=== PATIENT | male | born 1940 | race Caucasian/White ===

== ENCOUNTER → 2017-07-04 | Outpatient (CLI) | payer OTHER ==
[~2017-07-04] MED LIST: ALBUAER19 INH; CYAN500T PO; FINA5TAB PO; FOLI1TAB8 PO; FURO20TA PO; METO-551 PO; OPTIRAY 320 IV PRN; OXGN; SPRIN/30 INH; SULF-183 PO; TAMS0.4C59 PO; THIA100T11 PO
--- NOTE | 2017-07-04 10:20 | DIAGNOSTIC IMAGING REPORT ---
(CHEST) THORAX WITH CT DOSE: 479.41 mGy.cm HISTORY: Lung mass LUNG MASS SEEN XRAY TECHNIQUE: Multiaxial CT images of the chest were performed following the intravenous administration of contrast. A dose lowering technique was utilized adhering to the principles of ALARA. COMPARISON: None. No recent examinations are available for comparison. FINDINGS: The mediastinal and hilar regions show no significant adenopathy. There is mild atherosclerotic change thoracic aorta as well as the pulmonary vasculature. There is no evidence for aneurysm or dissection. Evaluation of lung parenchyma shows no evidence for focal infiltrate. There is a 4 mm nodule peripheral aspect right upper lobe transaxial image 38. There is a 3 mm nodular density lingula image 42. There is calcific granuloma right lower lobe posteriorly image 43. Limited evaluation the upper abdomen shows several renal peripelvic cysts with several nonobstructing renal calcifications. IMPRESSION: 1. Several very small low suspicion nodular densities as discussed. 2. A Six-month follow-up is suggested. 3. Examination of the chest is otherwise negative. The above report was generated using voice recognition software. It may contain grammatical, syntax or spelling errors. Electronically signed by: Jensen Pittman M.D. 07/04/2017 10:18 AM Dictated Date/Time: 07/04/2017 10:13 AM
== END | disposition home or self-care (01) ==
LOC: C.CTS 09:49
PROVIDERS: ATTEND Family Medicine
DX: R91.8 Other nonspecific abnormal finding of lung field (principal); I70.0 Atherosclerosis of aorta

== ENCOUNTER 2017-09-12 13:02 | Inpatient (IN) | payer OTHER ==
[~2017-09-12] VITALS: Ht 177.8 cm; Wt 92.5 kg
[~2017-09-12 13:02] MED LIST changes: -OPTIRAY 320 IV PRN
--- NOTE | 2017-09-12 14:25 | EMERGENCY ROOM VISIT NOTE ---
History First contact with patient: 14:14 Chief Complaint: FALL Stated Complaint: FALL History of Present Illness The patient is a 77 year old male who presents to the Emergency Room with complaints of recent fall while unloading box of beer from car and transporting it to house when he felt lightheaded, and new he was going to fall. No associated facial, palpitations, heart racing, dyspnea. Patient has history of COPD but only wears oxygen at night. Patient fell onto right arm and hit his right face on the concrete stairs. Denies LOC. Patient was on the ground for 2- 3 minutes while determining how to get up, and managed to use the banister to pull himself up. He noticed that his face and right arm was hurting, and called his daughter over to evaluate him, who then brought him to the ED. Patient is I n knownhypertensive, and states compliance with metoprolol and furosemide. A few months ago, he was started on metolazone 2.5mg when he was complained of worsened swelling in the legs. Denies lightheadedness with meds. He drinks 2 cups of coffee, and 4 beers daily, and does not drink water. This is patient's 3rd fall in 6 weeks. (first was mechanical - slipped on ice, other was from bending over) Patient is not on blood thinners or anticoagulants. Review of Systems See HPI for pertinent positives and negatives. A total of ten systems were reviewed and were otherwise negative. Past Medical/Surgical History Medical Problems: (1) BPH (benign prostatic hyperplasia) (2) COPD (chronic obstructive pulmonary disease) (3) HTN (hypertension) (4) Hx of basal cell carcinoma (5) Hx of squamous cell carcinoma of skin (6) New onset atrial fibrillation (7) PAD (peripheral artery disease) Surgical Problems: (1) Hx of prostate biopsy Social History Smoking Status: Current Every Day Smoker Alcohol Use: other (Regular) Housing Status: lives alone Current/Historical Medications Scheduled Cyanocobalamin (Vitamin B12 500MCG), 500 MCG PO QAM Folic Acid (Folvite), 1 MG PO QAM Furosemide (Lasix), 40 MG PO QAM Home O2 Therapy (Oxygen), 2 LITERS NA HS Metolazone (Zaroxolyn), 2.5 MG PO DAILY Metoprolol Tartrate (Lopressor), 50 MG PO BID Montelukast Sodium (Singulair), 1 TAB PO DAILY Thiamine Hcl (Vitamin B-1), 100 MG PO QAM Tiotropium [place] (Spiriva Handihaler), 1 CAP INH QAM Scheduled PRN Albuterol Inhaler (Ventolin Inhaler), 2 PUFFS INH QID PRN for Shortness of Breath Physical Exam Vital Signs Date Time Temp Pulse Resp B/P (MAP) Pulse Ox O2 Delivery O2 Flow Rate FiO2 09/12/17 17:39 58 20 125/72 99 Room Air 09/12/17 15:45 62 20 115/76 99 Room Air 09/12/17 14:38 57 09/12/17 13:14 36.3 49 20 163/55 99 Room Air Physical Exam GENERAL: alert, well appearing, thin, sitting in bed, no acute distress, non- toxic HEAD: Normocephalic. Superficial abrasions with localized edema over right eyebrow and right cheek. EYES: PERRL, EOMI, normal sclera and conjunctiva EARS: Tympanic membranes within normal limits, no indication of effusion. OROPHARYNX: No exudate, no erythema. Lips, buccal mucosa, and tongue normal and mucous membranes are tacky NECK: Supple, no nuchal rigidity, no adenopathy, non-tender LUNGS: Clear to auscultation. Normal chest wall mechanics, good air entry. No crepitations, crackles, or wheezes HEART: RRR, S1 and S2 normal, no murmurs appreciated CHEST: No reproducible tenderness. ABDOMEN: Soft, non-tender, normo-active bowel sounds, no masses, no rebound or guarding. BACK: Back is symmetrical on inspection, no deformities, no midline tenderness, no CVA tenderness. SKIN: Warm, pink, dry. Superficial abrasions over right face, previous bruises all over upper extremities EXTREMITIES: Grossly normal. Moving all 4 limbs, strength 5/5 In all 4 extremities. Swelling on right humerus at site of trauma from fall. 2+ pitting edema in lower extremities, R>L. Calves non tender. NEURO: Alert, Ox3. No focal deficits. Normal sensorium, cranial nerves II-XII grossly intact, normal speech. PSYCH: Mood and affect appropriate. Medical Decision & Procedures ER Provider Diagnostic Interpretation: HEAD WITHOUT CONTRAST (CT) CT DOSE: HISTORY: Trauma fall, laceration to face TECHNIQUE: Multiaxial CT images of the head were performed without the use of intravenous contrast. A dose lowering technique was utilized adhering to the principles of ALARA. Comparison: None. Findings: The paranasal sinuses and mastoid air cells are clear. The calvarium and skull base are intact. The ventricles and sulci are within normal limits. There is no mass, hematoma, midline shift, or acute infarct. Age-related atrophy and chronic small vessel change Impression: No acute intracranial abnormality. Age-related atrophy and chronic small vessel change. FACIAL BONES-MXILLOFAC WITHOUT CT DOSE: HISTORY: Trauma facial laceration secondary to fall TECHNIQUE: Multiaxial CT images of the maxillofacial region were performed and reformatted in the coronal plane without the use of contrast. A dose lowering technique was utilized adhering to the principles of ALARA. COMPARISON: None. FINDINGS: The visualized cervical spine, skull base, pterygoid plates, nasal bones, lamina papyracea, orbital floors, mandible, and zygomatic arches are intact. No fractures. The orbits are unremarkable. IMPRESSION: No fractures within the maxillofacial region. CERVICAL SPINE W/O CT DOSE: 1095.64 mGy.cm CLINICAL HISTORY: 77 years-old Male with neck pain secondary to fall. Acute neck pain status post fall COMPARISON: CT head and maxillofacial study of same day. TECHNIQUE: Multiple axial CT images of the cervical spine were obtained without contrast. A dose lowering technique was utilized adhering to the principles of ALARA. FINDINGS: There is no acute fracture or subluxation identified within the cervical spine. There is slight kyphotic curvature of the cervical spine centered at the C4-C5 level. Severe intervertebral disc space narrowing is seen at C4-C5, C5-C6 and C6-C7. Multilevel posterior disc osteophyte complex formations are seen in addition to at least mild multilevel facet arthrosis. There is resultant severe left-sided foraminal stenosis at C4-C5 and severe right foraminal narrowing on the right at C5-C6. No definite high-grade central canal narrowing. Bones appear mildly demineralized. Emphysematous changes are seen within the imaged lung apices. Atherosclerosis of the carotid vasculature. No acute intracranial abnormal amount identified. Mastoid air cells and middle ear cavities are clear. IMPRESSION: 1. No acute fracture or subluxation of the cervical spine. 2. Multilevel intervertebral disc space narrowing with posterior disc osteophyte complex formations as above. RIGHT HUMERUS 4 VIEWS HISTORY: Fall onto right arm COMPARISON: None. FINDINGS: No definite fracture or dislocation within the right humerus. Possible elbow effusion. Otherwise, the soft tissues are unremarkable. No radiopaque foreign bodies. IMPRESSION: 1. No fracture or dislocation within the right humerus. 2. Right elbow effusion. This raises the possibility of an occult elbow fracture. Dedicated elbow views is recommended for further evaluation. R ELBOW MIN 3 VIEWS ROUTINE CLINICAL HISTORY: FALL ONTO RT ARM trauma. Pain. COMPARISON: None. DISCUSSION: The bones and joint spaces appear intact. There is no evidence of fracture, dislocation or bony disease. There is no evidence for soft tissue swelling. IMPRESSION: Negative study. Laboratory Results 09/12/17 15:00 Red Blood Count 2.99, Mean Corpuscular Volume 90.0, Mean Corpuscular Hemoglobin 33.8, Mean Corpuscular Hemoglobin Concent 37.5, Mean Platelet Volume 9.8, Neutrophils (%) (Auto) 83.8, Lymphocytes (%) (Auto) 8.7, Monocytes (%) (Auto) 4.9, Eosinophils (%) (Auto) 1.5, Basophils (%) (Auto) 0.2, Neutrophils # (Auto) 11.67, Lymphocytes # (Auto) 1.21, Monocytes # (Auto) 0.68, Eosinophils # (Auto) 0.21, Basophils # (Auto) 0.03 Test 09/12/17 15:00 09/12/17 15:34 White Blood Count 13.92 K/uL (4.8-10.8) Red Blood Count 2.99 M/uL (4.7-6.1) Hemoglobin 10.1 g/dL (14.0-18.0) Hematocrit 26.9 % (42-52) Mean Corpuscular Volume 90.0 fL (80-100) Mean Corpuscular Hemoglobin 33.8 pg (25-34) Mean Corpuscular Hemoglobin Concent 37.5 g/dl (32-36) Platelet Count 312 K/uL (130-400) Mean Platelet Volume 9.8 fL (7.4-10.4) Neutrophils (%) (Auto) 83.8 % Lymphocytes (%) (Auto) 8.7 % Monocytes (%) (Auto) 4.9 % Eosinophils (%) (Auto) 1.5 % Basophils (%) (Auto) 0.2 % Neutrophils # (Auto) 11.67 K/uL (1.4-6.5) Lymphocytes # (Auto) 1.21 K/uL (1.2-3.4) Monocytes # (Auto) 0.68 K/uL (0.11-0.59) Eosinophils # (Auto) 0.21 K/uL (0-0.5) Basophils # (Auto) 0.03 K/uL (0-0.2) RDW Standard Deviation 41.0 fL (36.4-46.3) RDW Coefficient of Variation 12.5 % (11.5-14.5) Immature Granulocyte % (Auto) 0.9 % Immature Granulocyte # (Auto) 0.12 K/uL (0.00-0.02) Troponin I 0.019 ng/ml (0-0.045) Thyroid Stimulating Hormone (TSH) 5.940 uIu/ml (0.300-4.500) Urine Color YELLOW Urine Appearance CLOUDY (CLEAR) Urine pH 7.5 (4.5-7.5) Urine Specific [place] 1.000 (1.000-1.030) Urine Protein NEG (NEG) Urine Glucose (UA) NEG (NEG) Urine Ketones NEG (NEG) Urine Occult Blood TRACE (NEG) Urine Nitrite NEG (NEG) Urine Bilirubin NEG (NEG) Urine Urobilinogen NEG (NEG) Urine Leukocyte Esterase LARGE (NEG) Urine WBC (Auto) >30 /hpf (0-5) Urine RBC (Auto) 5-10 /hpf (0-4) Urine Hyaline Casts (Auto) 0 /lpf (0-5) Urine Epithelial Cells (Auto) 10-20 /lpf (0-5) Urine Bacteria (Auto) 1+ (NEG) Medications Administered Medications (Trade) Dose Ordered Sig/Arline Route Start Time Stop Time Status Last Admin Dose Admin Sodium Chloride 500 ml @ 100 mls/hr Q5H IV 09/12/17 16:00 09/12/17 20:59 DC 09/12/17 16:00 100 MLS/HR Acetaminophen (Tylenol Tab) 1,000 mg NOW STAT PO 09/12/17 14:58 09/12/17 15:41 DC 09/12/17 16:00 1,000 MG Potassium Chloride (Klor-Con M10) 40 meq STK-MED ONCE .ROUTE 09/12/17 16:01 09/12/17 16:02 DC 09/12/17 16:01 40 MEQ Ceftriaxone Sodium (Rocephin Inj) 1 gm NOW STAT IV 09/12/17 16:27 09/12/17 16:28 DC 09/12/17 16:37 1 GM ECG Per My Interpretation Indication: syncope Rate (beats per minute): 53 Rhythm: atrial fibrillation (with slow ventricular rate, new onset) Findings: T-wave inversion (In V1 and V2), no acute ischemic change Medical Decision Prior records/ancillary studies reviewed. Triage Nursing notes reviewed. Additional history obtained from patient and daughters. The patient's history was concerning for syncope. Differential diagnosis: Etiologies such as vasovagal event, infection, hypoglycemia, electrolyte abnormalities, cardiac sources, intracerebral event, toxicologic, neurologic, as well as others were entertained. Physical examination: Vitals noted: afebrile, bradycardic, hypertensive, appropriate respiratory rate and oxygen saturation. ER treatment provided: IV hydration with normal saline, PO Tylenol for pain, PO potassium supplementation, IV ceftriaxone 1mg On reassessment the patient felt better. Diagnostics interpretation by me: ECG: Atrial fibrillation with slow ventricular rate The labs revealed white cell count 13.92, hemoglobin 10.1, hyponatremia 125, hypokalemia 3.3, creatinine 1.74, BUN 26, troponin 0.019. Urinalysis revealed large amounts of leukocytes, RBCs, and bacteria Imaging studies: CT of head and facial bones and C-spine were within normal limits. There is right elbow effusion but no fracture of the elbow or humerus Consultation: A consultation was placed with the [facility] hospitalist, Dr. Daley. The case was discussed and diagnostics were reviewed. The patient was evaluated in the ER for further treatment. This fall appears to be multifactorial, possibly related to hyponatremia possible orthostasis, or secondary to his atrial fibrillation. By the evaluation outlined above emergent etiologies such as infection, hypoglycemia, intracerebral event, toxicologic, neurologic,as well as others were deemed relatively unlikely. The patient and his family were informed about the findings as listed above. All questions were answered and they were pleased with the treatment. Medication Reconcilliation Current Medication List: was personally reviewed by me Blood Pressure Screening Patient's blood pressure: Elevated blood pressure Impression Primary Impression: Fall Additional Impressions: Hyponatremia New onset atrial fibrillation UTI (urinary tract infection) Departure Information Dispostion Being Evaluated By Hospitalist Referrals Roshan Robert M.D.(BELLA) (PCP) Patient Instructions My [facility] Resident Tracking Resident Involvement: Resident Care Provided Care Provided: Adult ED Problem Qualifiers
[2017-09-12] MEDS ORDERED: ACETAMINOPHEN 500 MG TAB PO STA (14:58)
[2017-09-12 15:10] LABS: BASO % 0.2 %; BASO ABS # 0.03 K/uL (0-0.2); EOS % 1.5 %; EOS ABS # 0.21 K/uL (0-0.5); HEMATOCRIT 26.9 % (42-52); HEMOGLOBIN 10.1 g/dL (14.0-18.0); IG# 0.12 K/uL (0.00-0.02); LYMPH % 8.7 %; LYMPH ABS # 1.21 K/uL (1.2-3.4); MEAN CORPUSCULAR HEMOGLOBIN 33.8 pg (25-34); MEAN CORPUSCULAR HGB CONC 37.5 g/dl (32-36); MEAN PLATELET VOLUME 9.8 fL (7.4-10.4); MONO % 4.9 %; MONO ABS # 0.68 K/uL (0.11-0.59); NEUT % 83.8 %; NEUT ABS # 11.67 K/uL (1.4-6.5); PLATELET COUNT 312 K/uL (130-400); RED CELL DISTRIBUTION WIDTH CV 12.5 % (11.5-14.5); WHITE BLOOD COUNT 13.92 K/uL (4.8-10.8)
--- NOTE | 2017-09-12 15:16 | DIAGNOSTIC IMAGING REPORT ---
HEAD WITHOUT CONTRAST (CT) CT DOSE: HISTORY: Trauma fall, laceration to face TECHNIQUE: Multiaxial CT images of the head were performed without the use of intravenous contrast. A dose lowering technique was utilized adhering to the principles of ALARA. Comparison: None. Findings: The paranasal sinuses and mastoid air cells are clear. The calvarium and skull base are intact. The ventricles and sulci are within normal limits. There is no mass, hematoma, midline shift, or acute infarct. Age-related atrophy and chronic small vessel change Impression: No acute intracranial abnormality. Age-related atrophy and chronic small vessel change. The above report was generated using voice recognition software. It may contain grammatical, syntax or spelling errors. Electronically signed by: Jensen Pittman M.D. 09/12/2017 3:14 PM Dictated Date/Time: 09/12/2017 3:13 PM
--- NOTE | 2017-09-12 15:18 | DIAGNOSTIC IMAGING REPORT ---
FACIAL BONES-MXILLOFAC WITHOUT CT DOSE: HISTORY: Trauma facial laceration secondary to fall TECHNIQUE: Multiaxial CT images of the maxillofacial region were performed and reformatted in the coronal plane without the use of contrast. A dose lowering technique was utilized adhering to the principles of ALARA. COMPARISON: None. FINDINGS: The visualized cervical spine, skull base, pterygoid plates, nasal bones, lamina papyracea, orbital floors, mandible, and zygomatic arches are intact. No fractures. The orbits are unremarkable. IMPRESSION: No fractures within the maxillofacial region. The above report was generated using voice recognition software. It may contain grammatical, syntax or spelling errors. Electronically signed by: Jensen Pittman M.D. 09/12/2017 3:17 PM Dictated Date/Time: 09/12/2017 3:14 PM
--- NOTE | 2017-09-12 15:22 | DIAGNOSTIC IMAGING REPORT ---
CERVICAL SPINE W/O CT DOSE: 1095.64 mGy.cm CLINICAL HISTORY: 77 years-old Male with neck pain secondary to fall. Acute neck pain status post fall COMPARISON: CT head and maxillofacial study of same day. TECHNIQUE: Multiple axial CT images of the cervical spine were obtained without contrast. A dose lowering technique was utilized adhering to the principles of ALARA. FINDINGS: There is no acute fracture or subluxation identified within the cervical spine. There is slight kyphotic curvature of the cervical spine centered at the C4-C5 level. Severe intervertebral disc space narrowing is seen at C4-C5, C5-C6 and C6-C7. Multilevel posterior disc osteophyte complex formations are seen in addition to at least mild multilevel facet arthrosis. There is resultant severe left-sided foraminal stenosis at C4-C5 and severe right foraminal narrowing on the right at C5-C6. No definite high-grade central canal narrowing. Bones appear mildly demineralized. Emphysematous changes are seen within the imaged lung apices. Atherosclerosis of the carotid vasculature. No acute intracranial abnormal amount identified. Mastoid air cells and middle ear cavities are clear. IMPRESSION: 1. No acute fracture or subluxation of the cervical spine. 2. Multilevel intervertebral disc space narrowing with posterior disc osteophyte complex formations as above. The above report was generated using voice recognition software. It may contain grammatical, syntax or spelling errors. Electronically signed by: Simone Wilson M.D. 09/12/2017 3:21 PM Dictated Date/Time: 09/12/2017 3:15 PM
[2017-09-12 15:28] LABS: CALCIUM 8.8 mg/dl (8.5-10.1); CREATININE 1.74 mg/dl (0.60-1.40); POTASSIUM 3.3 mmol/L (3.5-5.1)
[2017-09-12] MEDS ORDERED: POTASSIUM CHLORIDE 10 MEQ TABCR PO STA (15:48)
[2017-09-12] MEDS ORDERED: SODIUM CHLORIDE 0.9% 500ML 500 ML IV SCH ×2 (16:00→18:30)
[2017-09-12] MEDS ORDERED: POTASSIUM CHLORIDE 10 MEQ TABCR ONE (16:01)
--- NOTE | 2017-09-12 16:06 | DIAGNOSTIC IMAGING REPORT ---
RIGHT HUMERUS 4 VIEWS HISTORY: Fall onto right arm COMPARISON: None. FINDINGS: No definite fracture or dislocation within the right humerus. Possible elbow effusion. Otherwise, the soft tissues are unremarkable. No radiopaque foreign bodies. IMPRESSION: 1. No fracture or dislocation within the right humerus. 2. Right elbow effusion. This raises the possibility of an occult elbow fracture. Dedicated elbow views is recommended for further evaluation. Electronically signed by: Estevan Smith M.D. 09/12/2017 4:05 PM Dictated Date/Time: 09/12/2017 4:03 PM
[2017-09-12] MEDS ORDERED: CEFTRIAXONE SOD INJ 1 GM ADDVIAL IV STA (16:27)
[2017-09-12] MEDS ORDERED: CYAN500T13 PO (17:05)
[2017-09-12] MEDS ORDERED: FINA5TAB PO (17:05)
[2017-09-12] MEDS ORDERED: THIA100T11 PO (17:05)
[2017-09-12] MEDS ORDERED: FOLI1TAB8 PO (17:05)
--- NOTE | 2017-09-12 17:40 | DIAGNOSTIC IMAGING REPORT ---
R ELBOW MIN 3 VIEWS ROUTINE CLINICAL HISTORY: FALL ONTO RT ARM trauma. Pain. COMPARISON: None. DISCUSSION: The bones and joint spaces appear intact. There is no evidence of fracture, dislocation or bony disease. There is no evidence for soft tissue swelling. IMPRESSION: Negative study. The above report was generated using voice recognition software. It may contain grammatical, syntax or spelling errors. Electronically signed by: Jensen Pittman M.D. 09/12/2017 5:39 PM Dictated Date/Time: 09/12/2017 5:39 PM
[2017-09-12] MEDS ORDERED: ONDANSETRON INJ 2 MG/ML 2 ML VIAL IV PRN (18:15)
[2017-09-12] MEDS ORDERED: POLYETHYLENE (MIRALAX) 17 GM PACK PO PRN (18:15)
[2017-09-12] MEDS ORDERED: NITROGLYCERIN 0.4 MG SL PER TAB CHARGE SL PRN (18:15)
[2017-09-12] MEDS ORDERED: GABAPENTIN 600 MG TAB PO SCH (18:30)
[2017-09-12] MEDS ORDERED: LORAZEPAM 1 MG TAB PO PRN (18:30)
[2017-09-12] MEDS ORDERED: MONT1TAB3 PO (18:38)
[2017-09-12] MEDS ORDERED: METO2.5T PO (18:38)
[2017-09-12] MEDS ORDERED: ALBUTEROL HFA 8 GM INHALER INH PRN (18:45)
[2017-09-12 19:34] VITALS: BP 169/51; PULSE 55; TEMP 36.7; O2SAT 95
[2017-09-12] MEDS ORDERED: GABAPENTIN 600MG LOADING DOSE PO ONE (20:00)
[2017-09-12] MEDS ORDERED: DIPHTHERIA/TETANUS/PERTUSSIS 0.5 ML SYR/VIAL IM. ONE (20:00)
--- NOTE | 2017-09-12 20:12 | History and Physical ---
History & Physical Date & Time of Service: Sep 12, 2017 at 18:45 Chief Complaint: FALL Primary Care Physician: Roshan Robert M.D.(BELLA) History of Present Illness Source: patient, family, clinic records, hospital records Pt is 77 y/o M with PMH HTN, COPD on 2L O2 HS, squamous and basal cell carcinoma , verrucous carcinoma penis/scrotum, hx elevated PSA, BPH, hx hyponatremia in past requiring sodium tabs presented to ER with c/o fall. Pt states was carrying in case of beer when he went to set the case down on step and felt dizzy and fell forward hitting face and R shoulder. Pt states took him a couple of minutes to get up off the ground. He denies LOC. C/O some pain to R forehead and cheek and had some bleeding from R facial wound. Initially had some discomfort to posterior neck and to R shoulder but states that has since resolved. Pt reports couple of weeks ago fell forward when he was leaning over to look at his lilac collins and felt like he lost his balance. Also reports slipped on ice when getting out of his truck landed on buttocks/back. Denies recurrent dizziness. Pt drinks 2 cups of coffee daily and 3 beers daily. Doesn' t drink any other fluids. Eats one meal a day and snacks on goldfish crackers or peanuts throughout the day. In past pt self-cath and states hasn't done so for greater than one year. He states has sensation of incomplete bladder emptying and frequent urination of small amounts, denies any worsening symptoms. denies dysuria or hematuria. Was on flomax and proscar in past, pt reports hasn't used for over a year. Pt reports hx bilateral LE edema and is on lasix 40mg daily. States had increased edema several months ago and was started on Zaroxolyn 2.5mg daily also. Hx echo in 06/2017: EF: 57%, no diffuse wall abnormality. Denies known hx CHF. Chronic SOB with exertion, denies worsening. Hasn't had to use albuterol inhaler. Denies fever/chills, diaphoresis, N/V/D/C, CAMACHO, vision changes, neck stiffness, orthopnea, palpitations, cough, sore throat , choking, otalgia, rhinorrhea, abdominal pain, paresthesias, rashes. last tetanus 2007 Past Medical/Surgical History Medical Problems: (1) BPH (benign prostatic hyperplasia) Status: Chronic (2) COPD (chronic obstructive pulmonary disease) Status: Chronic (3) HTN (hypertension) Status: Chronic (4) Hx of basal cell carcinoma Status: Chronic (5) Hx of squamous cell carcinoma of skin Status: Chronic (6) PAD (peripheral artery disease) Status: Chronic Surgical Problems: (1) Hx of prostate biopsy Status: Resolved Family History Hypertension Social History Smoking Status: Current Every Day Smoker (smokes 0.5ppd x 60 years) Smokeless Tobacco Use: No Alcohol Use: 3 beers daily Drug Use: none Housing status: lives alone Immunizations History of Influenza Vaccine: Yes Influenza Vaccine Date: May 13, 2012 History of Tetanus Vaccine?: Yes Tetanus Immunization Date: May 23, 2010 History of Pneumococcal: Yes Pneumococcal Date: May 23, 2005 History of Hepatitis B Vaccine: No Multi-Drug Resistant Organisms History of MDRO: No Allergies Coded Allergies: Aspirin (Verified Allergy, Unknown, UNKNOWN, 09/12/17) Penicillins (Verified Allergy, Unknown, UNKNOWN, 09/12/17) Home Medications Scheduled Cyanocobalamin (Vitamin B12 500MCG), 500 MCG PO QAM Folic Acid (Folvite), 1 MG PO QAM Furosemide (Lasix), 40 MG PO QAM Home O2 Therapy (Oxygen), 2 LITERS NA HS Metolazone (Zaroxolyn), 2.5 MG PO DAILY Metoprolol Tartrate (Lopressor), 50 MG PO BID Montelukast Sodium (Singulair), 1 TAB PO DAILY Thiamine Hcl (Vitamin B-1), 100 MG PO QAM Tiotropium [place] (Spiriva Handihaler), 1 CAP INH QAM Scheduled PRN Albuterol Inhaler (Ventolin Inhaler), 2 PUFFS INH QID PRN for Shortness of Breath Review of Systems Constitutional: No fever, No chills, No sweats, No weight loss, No weakness, No fatigue Eyes: No eye pain, No redness, No discharge, No diplopia ENT: No unusual epistaxis, No nasal symptoms, No sore throat, No trouble swallowing Respiratory: + dyspnea on exertion (see HPI), No cough, No sputum, No wheezing , No dyspnea at rest, No hemoptysis Cardiovascular: No chest pain, No orthopnea, No PND Abdomen: No pain, No nausea, No vomiting, No diarrhea, No constipation, No GI bleeding Musculoskeletal: No calf pain Genitourinary - Male: + problem reported (see HPI) Neurologic: No numbness/tingling Endocrine: No excessive thirst Integumentary: + problem reported (+bruising to extremities - pt reports where bumps or scratches himself), No rash Physical Exam Vital Signs Date Time Temp Pulse Resp B/P (MAP) Pulse Ox O2 Delivery O2 Flow Rate FiO2 09/12/17 17:39 58 20 125/72 99 Room Air 09/12/17 15:45 62 20 115/76 99 Room Air 09/12/17 14:38 57 09/12/17 13:14 36.3 49 20 163/55 99 Room Air General Appearance: WD/WN, no apparent distress Head: normocephalic, + pertinent finding (+ecchymosis R superior orbit/forhead , and R maxillary region. +skin tear with dried blood noted R maxillary region) Eyes: normal inspection, PERRL, EOMI, sclerae normal ENT: hearing grossly normal, pharynx normal, + pertinent finding (mucous membranes moist) Neck: supple, no JVD, trachea midline, + pertinent finding (non-tender to palpation, ROM intact) Respiratory/Chest: chest non-tender, no respiratory distress, no accessory muscle use, + decreased breath sounds (throughout) Cardiovascular: no murmur, + bradycardia Abdomen/GI: normal bowel sounds, non tender, soft Extremities/Musculoskelatal: no calf tenderness, normal capillary refill, + pedal edema (2+pretibial edema), + pertinent finding (ROM intact to upper and lower extremities. R shoulder, arm, elbow non-tender. Distal pulses intact, sensation to light touch intact) Neurologic/Psych: alert, normal mood/affect, oriented x 3 Skin: warm/dry, + pertinent finding (multiple ecchymosis noted to bilateral arms) Diagnostics Laboratory Results Results Past 24 Hours Test 09/12/17 15:00 09/12/17 15:34 Range/Units White Blood Count 13.92 4.8-10.8 K/uL Red Blood Count 2.99 4.7-6.1 M/uL Hemoglobin 10.1 14.0-18.0 g/dL Hematocrit 26.9 42-52 % Mean Corpuscular Volume 90.0 80-100 fL Mean Corpuscular Hemoglobin 33.8 25-34 pg Mean Corpuscular Hemoglobin Concent 37.5 32-36 g/dl Platelet Count 312 130-400 K/uL Mean Platelet Volume 9.8 7.4-10.4 fL Neutrophils (%) (Auto) 83.8 % Lymphocytes (%) (Auto) 8.7 % Monocytes (%) (Auto) 4.9 % Eosinophils (%) (Auto) 1.5 % Basophils (%) (Auto) 0.2 % Neutrophils # (Auto) 11.67 1.4-6.5 K/uL Lymphocytes # (Auto) 1.21 1.2-3.4 K/uL Monocytes # (Auto) 0.68 0.11-0.59 K/uL Eosinophils # (Auto) 0.21 0-0.5 K/uL Basophils # (Auto) 0.03 0-0.2 K/uL RDW Standard Deviation 41.0 36.4-46.3 fL RDW Coefficient of Variation 12.5 11.5-14.5 % Immature Granulocyte % (Auto) 0.9 % Immature Granulocyte # (Auto) 0.12 0.00-0.02 K/uL Sodium Level 125 136-145 mmol/L Potassium Level 3.3 3.5-5.1 mmol/L Chloride Level 87 98-107 mmol/L Carbon Dioxide Level 31 21-32 mmol/L Anion Gap 7.0 3-11 mmol/L Blood Urea Nitrogen 26 7-18 mg/dl Creatinine 1.74 0.60-1.40 mg/dl Est Creatinine Clear Calc Drug Dose 39.9 ml/min Estimated GFR () 42.6 Estimated GFR (Non- 36.7 BUN/Creatinine Ratio 14.9 10-20 Random Glucose 97 70-99 mg/dl Calcium Level 8.8 8.5-10.1 mg/dl Troponin I 0.019 0-0.045 ng/ml Urine Color YELLOW Urine Appearance CLOUDY CLEAR Urine pH 7.5 4.5-7.5 Urine Specific [place] 1.000 1.000-1.030 Urine Protein NEG NEG Urine Glucose (UA) NEG NEG Urine Ketones NEG NEG Urine Occult Blood TRACE NEG Urine Nitrite NEG NEG Urine Bilirubin NEG NEG Urine Urobilinogen NEG NEG Urine Leukocyte Esterase LARGE NEG Urine WBC (Auto) >30 0-5 /hpf Urine RBC (Auto) 5-10 0-4 /hpf Urine Hyaline Casts (Auto) 0 0-5 /lpf Urine Epithelial Cells (Auto) 10-20 0-5 /lpf Urine Bacteria (Auto) 1+ NEG Microbiology Results 09/12/17 Urine Culture, Received Pending Diagnostic Radiology R HUMERUS XRAY: IMPRESSION: 1. No fracture or dislocation within the right humerus. 2. Right elbow effusion. This raises the possibility of an occult elbow fracture. Dedicated elbow views is recommended for further evaluation. R ELBOW XRAY: IMPRESSION: Negative study. CT HEAD: Impression: No acute intracranial abnormality. Age-related atrophy and chronic small vessel change. CT C-SPINE: IMPRESSION: 1. No acute fracture or subluxation of the cervical spine. 2. Multilevel intervertebral disc space narrowing with posterior disc osteophyte complex formations as above. CT MAXILLOFACIAL IMPRESSION: No fractures within the maxillofacial region. EKG EKG: bradycardia with PAC Read by back grinder: Sinus bradycardia with a PAC Nonspecific T wave abnormality Abnormal ECG When compared with ECG of 06-JUN-2012 17:46, There are now PACs Confirmed by Boaz Adan ([id number]) on 09/12/2017 4:08:12 PM Impression Assessment and Plan FALL Pt with fall after dizzy when leaning over after carrying case of beer, hitting face. Was on ground for couple of minutes and able to get up on own, denies LOC. Negative CT head, negative CT c-spine and maxillofacial for fracture. Negative R humerus and R elbow xrays for fractures. fall may be secondary to hyponatremia, UTI. Pt has wound to face, no repair needed. -Local wound care -Td booster -fall precautions UTI Pt with hx BPH, Self cath in past but hasn't done so for >year. U/A: large leuk , WBC>30, 5-10 RBC, 1+bacteria. WBC: 13.9. Afebrile. Started on Rocephin in ER -pending urine culture. blood cultures added. -Rocephin -repeat cbc HYPONATREMIA Na: 125. Pt on lasix 40mg daily and was started on Zaroxolyn 2.5mg in 05/2017 for increased LE edema. Suspect increased diuretics cause. Hx hyponatremia in past requiring sodium tabs. -serum, urine osmol -NSS 100ml/hr x 500ml. Repeat prp in 6 hours to further evaluate. Repeat Na was 128. Fluid restriction at 1500, monitor over night -repeat prp HYPOKALEMIA K: 3.3. Given Potassium 40meq in ER -cmp in 6 hours to further evaluate. repeat K: 3.1. Potassium 20meq given -monitor prp COPD No exacerbation. -continue O2 2L HS -continue Singulair, Spiriva daily and albuterol inhaler prn ETOH USE Drinks 3 beers a day, reports last drank last night -ETOH withdrawal protocol with gabapentin, ativan prn -monitor for any withdrawal symptoms -continue thiamine, B12, folic acid -cmp added to evaluate liver functions HTN Stable at this time. Pt with bradycardia - low noted at 49 Decrease metoprolol dose from 50mg BID to 25mg BID -monitor LE EDEMA Hx LE edema. Lungs without rales. holding Lasix and Zaroxolyn at this time with hyponatremia. -Ifeanyi olsen -continue to monitor CKD III Cr: 1.7 (Cr 1.7 and GFR: 39 in 05/2017) -continue to monitor DVT Prophylaxis -SCD Disposition admit tele DNR as per discussion with pt Follows with Dr Robert for routine care Pt was seen with Dr Daley. See addendum Level of Care Telemetry Resuscitation Status DO NOT RESUSCITATE VTE Prophylaxis VTE Risk Assessment Done? Y/N: Yes Risk Level: Moderate Given or contraindicated: SCD's Note ATTENDING ADDENDUM Record reviewed. Patient interviewed and examined. Care coordinated with Kaylynn Herring PA-C. Please refer to her documentation for patient's history. Briefly, 77-year-old male with history of hypertension, COPD, and other problems noted below. He fell today while carrying a case of beer into his house. No loss of consciousness. He has fallen occasionally in the past. Takes furosemide and metolazone for lower extremity edema. EXAM: General- no acute distress VS- as noted HEENT- abrasions right forehead and face; anicteric Neck- supple Lungs- clear to auscultation Heart- regular, no murmur gallop appreciated Abdomen- normal bowel sounds, soft, nontender Extremities- chronic appearing 1-2+ dependent edema; no calf tenderness Neuro- alert, oriented DATA: Hemoglobin 10.1, white count 13,920, platelet count 312,000. Sodium 125, potassium 3.3, chloride 87, CO2 31, BUN 26, creatinine 1.74, random glucose 97. Troponin [address] of head did not show any acute intracranial abnormalities or skull fracture. CT of face did not show any maxillofacial fractures. CT of cervical spine demonstrated degenerative changes, no fracture or dislocation. X-rays of right humerus and elbow did not show any fractures or dislocations. ASSESSMENT AND PLAN: HYPONATREMIA Serum sodium 125. Hyponatremia probably mostly secondary to diuretic therapy. Inadequate sodium intake and/or SIADH may be contributing factors. Hold diuretics. IV normal saline with caution with gradual correction of hyponatremia. Follow serum chemistries. HYPOKALEMIA Serum sodium 3.3. Hypokalemia most likely secondary to diuretic therapy. Replace, follow. RENAL INSUFFICIENCY CKD III. Serum creatinine 1.7, comparable to recent baseline. Avoid potential nephrotoxins. Follow. URINARY TRACT INFECTION UA shows leukocyte esterase, many WBCs, bacteria. Urine culture sent. Received IV ceftriaxone which will be continued pending culture results. LOWER EXTREMITY EDEMA Chronic lower extremity edema, probably secondary to venous insufficiency. Hold diuretics because of electrolyte abnormalities. Thigh-high TEDS. HYPERTENSION Adjust metoprolol dose due to bradycardia. Follow titrate therapy. ALCOHOL CONSUMPTION Drinks 3-4 beers per day. Alcohol withdrawal protocol ordered. FALLS PT/OT. VTE PROPHYLAXIS No anticoagulants due to head injury. SCDs. Ambulate. Please refer to DORI Sotomayor's documentation for discussion of other issues. Jimbo Daley MD . Additional Copies To Roshan Robert M.D.([id number]
[2017-09-12] MEDS ORDERED: DIPHTHERIA/TETANUS TOX ADSORBED ULTRAFINED 0.5 ML SYR/VIAL IM. ONE (20:15)
--- NOTE | 2017-09-12 21:33 | EMERGENCY ROOM VISIT NOTE ---
History Report prepared by [place]: Adriano Beltran Under the Supervision of: Dr. Jimbo Wharton M.D. First contact with patient: 14:14 Chief Complaint: FALL Stated Complaint: FALL History of Present Illness The patient is a 77 year old male who presents to the Emergency Room with complaints of constant face and shoulder pain that started prior to arrival. He rates his discomfort as a 5/10 in severity. The patient states that he has experienced two falls in the past six weeks. He reports that his first fall was from slipping on ice and his second fall was from bending down and becoming lightheaded. The patient states he had another falling incident today after picking up a case of beer out of his car. He reports he became lightheaded, resulting in him falling and hitting his right arm followed by his face on the cement stairs. The patient states he began to develop face and arm pain following the fall. He states he attempted to get himself up for 2-3 minutes and successfully used the banister. The patient denies LOC, headache, fevers, chills, diaphoresis, visual changes, neck pain, chest pain, breathing difficulties, nausea, vomiting, abdominal pain, back pain, melena, hematochezia , urinary symptoms, numbness, weakness, lymphadenopathy, rash, or other complaints. The patient reports a history of COPD, which he wears oxygen at night for, PAD, HTN, and BPH. Source of History: patient Onset: prior to arrival Position: arm (right), other (face) Symptom Intensity: 5/10 Timing: constant Note: Associated symptoms: lightheaded Review of Systems See HPI for pertinent positives and negatives. A total of ten systems were reviewed and were otherwise negative. Past Medical & Surgical Medical Problems: (1) BPH (benign prostatic hyperplasia) (2) COPD (chronic obstructive pulmonary disease) (3) HTN (hypertension) (4) Hx of basal cell carcinoma (5) Hx of squamous cell carcinoma of skin (6) New onset atrial fibrillation (7) PAD (peripheral artery disease) Surgical Problems: (1) Hx of prostate biopsy Family History Hypertension Social History Smoking Status: Current Every Day Smoker Alcohol Use: heavy Marital Status: single Housing Status: lives alone Occupation Status: retired Current/Historical Medications Scheduled Cyanocobalamin (Vitamin B12 500MCG), 500 MCG PO QAM Folic Acid (Folvite), 1 MG PO QAM Furosemide (Lasix), 40 MG PO QAM Home O2 Therapy (Oxygen), 2 LITERS NA HS Metolazone (Zaroxolyn), 2.5 MG PO DAILY Metoprolol Tartrate (Lopressor), 50 MG PO BID Montelukast Sodium (Singulair), 1 TAB PO DAILY Thiamine Hcl (Vitamin B-1), 100 MG PO QAM Tiotropium [place] (Spiriva Handihaler), 1 CAP INH QAM Scheduled PRN Albuterol Inhaler (Ventolin Inhaler), 2 PUFFS INH QID PRN for Shortness of Breath Allergies Coded Allergies: Aspirin (Verified Allergy, Unknown, UNKNOWN, 09/12/17) Penicillins (Verified Allergy, Unknown, UNKNOWN, 09/12/17) Physical Exam Vital Signs Date Time Temp Pulse Resp B/P (MAP) Pulse Ox O2 Delivery O2 Flow Rate FiO2 09/12/17 17:39 58 20 125/72 99 Room Air 09/12/17 15:45 62 20 115/76 99 Room Air 09/12/17 14:38 57 09/12/17 13:14 36.3 49 20 163/55 99 Room Air Physical Exam GENERAL: Awake, alert, well-appearing, in no distress HENT: Normocephalic, atraumatic. Oropharynx unremarkable. EYES: Normal conjunctiva. Sclera non-icteric. NECK: Supple. No nuchal rigidity. FROM. No masses. RESPIRATORY: Clear to auscultation. No wheezes. CARDIAC: Bradycardic. Irregular rhythm. No murmurs. No rubs. Extremities warm and well perfused. Pulses equal. No JVD. GI: Soft, non-distended. No tenderness to palpation. No rebound or guarding. No masses. RECTAL: Deferred. MUSCULOSKELETAL: Atraumatic. Chest examination reveals no tenderness. The back is symmetrical on inspection without obvious abnormality. There is no CVA tenderness to palpation. No joint edema. LOWER EXTREMITIES: Calves are equal size bilaterally and non-tender. 1+ edema. No discoloration. NEURO: Normal sensorium. No sensory or motor deficits noted. SKIN: No rash or jaundice noted. Abrasions and contusions to right forehead, cheek, and right upper arm. Medical Decision & Procedures ER Provider Diagnostic Interpretation: Radiology results as stated below per my review and radiologist interpretation: HEAD WITHOUT CONTRAST (CT) CT DOSE: HISTORY: Trauma fall, laceration to face TECHNIQUE: Multiaxial CT images of the head were performed without the use of intravenous contrast. A dose lowering technique was utilized adhering to the principles of ALARA. Comparison: None. Findings: The paranasal sinuses and mastoid air cells are clear. The calvarium and skull base are intact. The ventricles and sulci are within normal limits. There is no mass, hematoma, midline shift, or acute infarct. Age-related atrophy and chronic small vessel change Impression: No acute intracranial abnormality. Age-related atrophy and chronic small vessel change. The above report was generated using voice recognition software. It may contain grammatical, syntax or spelling errors. Electronically signed by: Jensen Pittman M.D. 09/12/2017 3:14 PM Dictated Date/Time: 09/12/2017 3:13 PM FACIAL BONES-MXILLOFAC WITHOUT CT DOSE: HISTORY: Trauma facial laceration secondary to fall TECHNIQUE: Multiaxial CT images of the maxillofacial region were performed and reformatted in the coronal plane without the use of contrast. A dose lowering technique was utilized adhering to the principles of ALARA. COMPARISON: None. FINDINGS: The visualized cervical spine, skull base, pterygoid plates, nasal bones, lamina papyracea, orbital floors, mandible, and zygomatic arches are intact. No fractures. The orbits are unremarkable. IMPRESSION: No fractures within the maxillofacial region. The above report was generated using voice recognition software. It may contain grammatical, syntax or spelling errors. Electronically signed by: Jensen Pittman M.D. 09/12/2017 3:17 PM Dictated Date/Time: 09/12/2017 3:14 PM RIGHT HUMERUS 4 VIEWS HISTORY: Fall onto right arm COMPARISON: None. FINDINGS: No definite fracture or dislocation within the right humerus. Possible elbow effusion. Otherwise, the soft tissues are unremarkable. No radiopaque foreign bodies. IMPRESSION: 1. No fracture or dislocation within the right humerus. 2. Right elbow effusion. This raises the possibility of an occult elbow fracture. Dedicated elbow views is recommended for further evaluation. Electronically signed by: Estevan Smith M.D. 09/12/2017 4:05 PM Dictated Date/Time: 09/12/2017 4:03 PM CERVICAL SPINE W/O CT DOSE: 1095.64 mGy.cm CLINICAL HISTORY: 77 years-old Male with neck pain secondary to fall. Acute neck pain status post fall COMPARISON: CT head and maxillofacial study of same day. TECHNIQUE: Multiple axial CT images of the cervical spine were obtained without contrast. A dose lowering technique was utilized adhering to the principles of ALARA. FINDINGS: There is no acute fracture or subluxation identified within the cervical spine. There is slight kyphotic curvature of the cervical spine centered at the C4-C5 level. Severe intervertebral disc space narrowing is seen at C4-C5, C5-C6 and C6-C7. Multilevel posterior disc osteophyte complex formations are seen in addition to at least mild multilevel facet arthrosis. There is resultant severe left-sided foraminal stenosis at C4-C5 and severe right foraminal narrowing on the right at C5-C6. No definite high-grade central canal narrowing. Bones appear mildly demineralized. Emphysematous changes are seen within the imaged lung apices. Atherosclerosis of the carotid vasculature. No acute intracranial abnormal amount identified. Mastoid air cells and middle ear cavities are clear. IMPRESSION: 1. No acute fracture or subluxation of the cervical spine. 2. Multilevel intervertebral disc space narrowing with posterior disc osteophyte complex formations as above. The above report was generated using voice recognition software. It may contain grammatical, syntax or spelling errors. Electronically signed by: Simone Wilson M.D. 09/12/2017 3:21 PM Dictated Date/Time: 09/12/2017 3:15 PM R ELBOW MIN 3 VIEWS ROUTINE CLINICAL HISTORY: FALL ONTO RT ARM trauma. Pain. COMPARISON: None. DISCUSSION: The bones and joint spaces appear intact. There is no evidence of fracture, dislocation or bony disease. There is no evidence for soft tissue swelling. IMPRESSION: Negative study. The above report was generated using voice recognition software. It may contain grammatical, syntax or spelling errors. Electronically signed by: Jensen Pittman M.D. 09/12/2017 5:39 PM Dictated Date/Time: 09/12/2017 5:39 PM Laboratory Results 09/12/17 15:00 Red Blood Count 2.99, Mean Corpuscular Volume 90.0, Mean Corpuscular Hemoglobin 33.8, Mean Corpuscular Hemoglobin Concent 37.5, Mean Platelet Volume 9.8, Neutrophils (%) (Auto) 83.8, Lymphocytes (%) (Auto) 8.7, Monocytes (%) (Auto) 4.9, Eosinophils (%) (Auto) 1.5, Basophils (%) (Auto) 0.2, Neutrophils # (Auto) 11.67, Lymphocytes # (Auto) 1.21, Monocytes # (Auto) 0.68, Eosinophils # (Auto) 0.21, Basophils # (Auto) 0.03 09/12/17 15:00 Test 09/12/17 15:00 09/12/17 15:34 White Blood Count 13.92 K/uL (4.8-10.8) Red Blood Count 2.99 M/uL (4.7-6.1) Hemoglobin 10.1 g/dL (14.0-18.0) Hematocrit 26.9 % (42-52) Mean Corpuscular Volume 90.0 fL (80-100) Mean Corpuscular Hemoglobin 33.8 pg (25-34) Mean Corpuscular Hemoglobin Concent 37.5 g/dl (32-36) Platelet Count 312 K/uL (130-400) Mean Platelet Volume 9.8 fL (7.4-10.4) Neutrophils (%) (Auto) 83.8 % Lymphocytes (%) (Auto) 8.7 % Monocytes (%) (Auto) 4.9 % Eosinophils (%) (Auto) 1.5 % Basophils (%) (Auto) 0.2 % Neutrophils # (Auto) 11.67 K/uL (1.4-6.5) Lymphocytes # (Auto) 1.21 K/uL (1.2-3.4) Monocytes # (Auto) 0.68 K/uL (0.11-0.59) Eosinophils # (Auto) 0.21 K/uL (0-0.5) Basophils # (Auto) 0.03 K/uL (0-0.2) RDW Standard Deviation 41.0 fL (36.4-46.3) RDW Coefficient of Variation 12.5 % (11.5-14.5) Immature Granulocyte % (Auto) 0.9 % Immature Granulocyte # (Auto) 0.12 K/uL (0.00-0.02) Anion Gap 7.0 mmol/L (3-11) Est Creatinine Clear Calc Drug Dose 39.9 ml/min Estimated GFR () 42.6 Estimated GFR (Non- 36.7 BUN/Creatinine Ratio 14.9 (10-20) Calcium Level 8.8 mg/dl (8.5-10.1) Troponin I 0.019 ng/ml (0-0.045) Thyroid Stimulating Hormone (TSH) 5.940 uIu/ml (0.300-4.500) Urine Color YELLOW Urine Appearance CLOUDY (CLEAR) Urine pH 7.5 (4.5-7.5) Urine Specific [place] 1.000 (1.000-1.030) Urine Protein NEG (NEG) Urine Glucose (UA) NEG (NEG) Urine Ketones NEG (NEG) Urine Occult Blood TRACE (NEG) Urine Nitrite NEG (NEG) Urine Bilirubin NEG (NEG) Urine Urobilinogen NEG (NEG) Urine Leukocyte Esterase LARGE (NEG) Urine WBC (Auto) >30 /hpf (0-5) Urine RBC (Auto) 5-10 /hpf (0-4) Urine Hyaline Casts (Auto) 0 /lpf (0-5) Urine Epithelial Cells (Auto) 10-20 /lpf (0-5) Urine Bacteria (Auto) 1+ (NEG) Laboratory results reviewed by me Medications Administered Medications (Trade) Dose Ordered Sig/Arline Route Start Time Stop Time Status Last Admin Dose Admin Sodium Chloride 500 ml @ 100 mls/hr Q5H IV 09/12/17 16:00 09/12/17 20:59 DC 09/12/17 16:00 100 MLS/HR Acetaminophen (Tylenol Tab) 1,000 mg NOW STAT PO 09/12/17 14:58 09/12/17 15:41 DC 09/12/17 16:00 1,000 MG Potassium Chloride (Klor-Con M10) 40 meq STK-MED ONCE .ROUTE 09/12/17 16:01 09/12/17 16:02 DC 09/12/17 16:01 40 MEQ Ceftriaxone Sodium (Rocephin Inj) 1 gm NOW STAT IV 09/12/17 16:27 09/12/17 16:28 DC 09/12/17 16:37 1 GM ECG Per My Interpretation Indication: weakness Rate (beats per minute): 53 Rhythm: sinus bradycardia Findings: nonspecific-ST abn, PAC ED Course 1458: Ordered Tylenol Tab 1000 mg PO. 1548: Ordered Potassium Chloride 40 meq PO. 1600: Ordered Sodium Chloride 500 ml @ 100 mls/hr IV. 1622: The patient was evaluated in room B03B. A complete history and physical exam was performed. 1627: Ordered Rocephin Injection 1 gm IV. 1658: I discussed the patient's case with Marissa Cabrera. He understands the patient's case and agrees to accept the patient. The patient will be further evaluated. Medical Decision Triage Nursing notes reviewed. The patient's presentation and history were concerning for a fall and head injury. Etiologies such as subdural hematoma, fracture, concussion, contusion, metabolic , infection, hypo/hyperglycemia, electrolyte abnormalities, cardiac sources, intracerebral event, toxicologic, neurologic, as well as others were entertained. The patient was evaluated. Blood was obtained. Imaging was ordered. CT imaging revealed soft tissue findings but no evidence of bleeding or fracture. The patient had a mild leukocytosis on CBC. Chemistry panel was concerning for significant hyponatremia. Urinalysis was also concerning for infection. He was given IV Rocephin. He was hydrated with normal saline. The patient and family were informed. Initially the patient was reluctant to stay in the hospital but I convinced him to stay. Family strongly encouraged him to stay as well. Consultation was made with the [place] hospitalist service. The patient was evaluated in the Emergency Room for further management. The patient was seen and examined with Dr. Camarillo, resident physician. We discussed the case and treatments ordered, reviewed the results, and determine the disposition. Please refer to the resident's note for additional details. I have been directly involved with the management and disposition as well as independently evaluated the patient as documented in this note. Medication Reconcilliation Current Medication List: was personally reviewed by me Blood Pressure Screening Patient's blood pressure: Elevated blood pressure Blood pressure disposition: Referred to PCP Consults Time Called: 164 Consulting Physician: Marissa Cabrera Returned Call: [phone] I discussed the patient's case with Marissa Cabrera. He understands the patient's case and agrees to accept the patient. The patient will be further evaluated. Impression Primary Impression: Hyponatremia Additional Impressions: Closed head injury UTI (urinary tract infection) Scribe Attestation The scribe's documentation has been prepared under my direction and personally reviewed by me in its entirety. I confirm that the note above accurately reflects all work, treatment, procedures, and medical decision making performed by me. Departure Information Dispostion Being Evaluated By Hospitalist Referrals Roshan Robert M.D.(BELLA) (PCP) Patient Instructions My [facility] Problem Qualifiers
[2017-09-12 21:43] VITALS: BP 143/79; PULSE 56
[2017-09-12] MEDS: METOPROLOL TARTRATE 25 MG TAB PO SCH (21:44)
[2017-09-12 22:56] LABS: ALBUMIN 2.6 gm/dl (3.4-5.0); CALCIUM 8.1 mg/dl (8.5-10.1); CREATININE 1.73 mg/dl (0.60-1.40); POTASSIUM 3.1 mmol/L (3.5-5.1)
[2017-09-12 22:59] LABS: TOTAL PROTEIN 6.1 gm/dl (6.4-8.2)
[2017-09-12 23:00] VITALS: BP 143/79; PULSE 56; TEMP 36.7; O2SAT 99; Ht 177.8 cm; Wt 92.5 kg
[2017-09-12] MEDS ORDERED: POTASSIUM CHLORIDE 20 MEQ TABCR PO STA (23:41)
[2017-09-12 23:43] VITALS: BP 129/67; PULSE 56; TEMP 36.5; O2SAT 93
[2017-09-13] VITALS (7 sets, daily range): BP systolic 133–150; BP diastolic 61–74; PULSE 52–77; TEMP 36.4–37.2; O2SAT 90–100
[2017-09-13] MEDS: ACETAMINOPHEN 325 MG TAB PO PRN ×2 (00:19→18:51)
[2017-09-13] MEDS: GABAPENTIN 100MG Q6H DOSE PO SCH ×2 (05:39→08:20)
[2017-09-13 05:49] LABS: HEMATOCRIT 24.3 % (42-52); HEMOGLOBIN 8.5 g/dL (14.0-18.0); MEAN CORPUSCULAR HEMOGLOBIN 32.2 pg (25-34); MEAN PLATELET VOLUME 9.7 fL (7.4-10.4); PLATELET COUNT 264 K/uL (130-400); RED CELL DISTRIBUTION WIDTH CV 12.6 % (11.5-14.5); RED CELL DISTRIBUTION WIDTH SD 42.4 fL (36.4-46.3); WHITE BLOOD COUNT 10.17 K/uL (4.8-10.8)
[2017-09-13 06:17] LABS: CREATININE 1.77 mg/dl (0.60-1.40); POTASSIUM 3.4 mmol/L (3.5-5.1)
[2017-09-13] MEDS: TIOTROPIUM BROMIDE 5 PUFF/90 MCG INH INH SCH (08:18)
[2017-09-13] MEDS: THIAMINE HCL 100 MG TAB PO SCH (08:19)
[2017-09-13] MEDS: CYANOCOBALAMIN 500 MCG TAB (VIT B-12) PO SCH (08:19)
[2017-09-13] MEDS: MONTELUKAST SOD 10 MG TAB PO SCH (08:19)
[2017-09-13] MEDS: METOPROLOL TARTRATE 25 MG TAB PO SCH ×2 (09:00→20:42)
[2017-09-13] MEDS ORDERED: POTASSIUM CHLORIDE 20 MEQ TABCR PO ONE (09:00)
--- NOTE | 2017-09-13 10:42 | Progress Note ---
Medicine Progress Note Date & Time of Visit: Sep 13, 2017 at 10:03. Subjective Pt was seen and examined Sitting in chair with no distress Pt said that he feels slightly better He does have a cough Denies any chest pain, palpitation, dizziness and SOB Objective Last 8 Hrs Date Time Temp Pulse Resp B/P (MAP) Pulse Ox O2 Delivery O2 Flow Rate FiO2 09/13/17 07:51 36.6 52 18 133/66 (88) 96 09/13/17 04:00 Nasal Cannula 2.0 09/13/17 03:28 36.5 54 20 143/61 (88) 98 Nasal Cannula 2.0 Physical Exam: General- No acute distress Head- abrasions right forehead and face Eyes- PERRL, EOMI ENT- oropharynx clear Neck- supple, no JVD Lungs- No wheezing, no crackles Heart-Bradycardia Abdomen- normal bowel sounds, soft Extremities- no calf tenderness, +edema Neuro- alert, oriented x 3; PERRL, EOMI; Skin- Ecchymoses in extremities Laboratory Results: Last 24 Hours Test 09/12/17 15:00 09/12/17 15:34 09/12/17 22:18 09/13/17 00:20 White Blood Count 13.92 K/uL Red Blood Count 2.99 M/uL Hemoglobin 10.1 g/dL Hematocrit 26.9 % Mean Corpuscular Volume 90.0 fL Mean Corpuscular Hemoglobin 33.8 pg Mean Corpuscular Hemoglobin Concent 37.5 g/dl Platelet Count 312 K/uL Mean Platelet Volume 9.8 fL Neutrophils (%) (Auto) 83.8 % Lymphocytes (%) (Auto) 8.7 % Monocytes (%) (Auto) 4.9 % Eosinophils (%) (Auto) 1.5 % Basophils (%) (Auto) 0.2 % Neutrophils # (Auto) 11.67 K/uL Lymphocytes # (Auto) 1.21 K/uL Monocytes # (Auto) 0.68 K/uL Eosinophils # (Auto) 0.21 K/uL Basophils # (Auto) 0.03 K/uL RDW Standard Deviation 41.0 fL RDW Coefficient of Variation 12.5 % Immature Granulocyte % (Auto) 0.9 % Immature Granulocyte # (Auto) 0.12 K/uL Sodium Level 125 mmol/L 128 mmol/L Potassium Level 3.3 mmol/L 3.1 mmol/L Chloride Level 87 mmol/L 89 mmol/L Carbon Dioxide Level 31 mmol/L 29 mmol/L Anion Gap 7.0 mmol/L 10.0 mmol/L Blood Urea Nitrogen 26 mg/dl 26 mg/dl Creatinine 1.74 mg/dl 1.73 mg/dl Est Creatinine Clear Calc Drug Dose 39.9 ml/min 40.1 ml/min Estimated GFR () 42.6 42.9 Estimated GFR (Non- 36.7 37.0 BUN/Creatinine Ratio 14.9 15.0 Random Glucose 97 mg/dl 137 mg/dl Calcium Level 8.8 mg/dl 8.1 mg/dl Troponin I 0.019 ng/ml Thyroid Stimulating Hormone (TSH) 5.940 uIu/ml Urine Color YELLOW Urine Appearance CLOUDY Urine pH 7.5 Urine Specific [place] 1.000 Urine Protein NEG Urine Glucose (UA) NEG Urine Ketones NEG Urine Occult Blood TRACE Urine Nitrite NEG Urine Bilirubin NEG Urine Urobilinogen NEG Urine Leukocyte Esterase LARGE Urine WBC (Auto) >30 /hpf Urine RBC (Auto) 5-10 /hpf Urine Hyaline Casts (Auto) 0 /lpf Urine Epithelial Cells (Auto) 10-20 /lpf Urine Bacteria (Auto) 1+ Total Bilirubin 0.5 mg/dl Aspartate Amino Transf (AST/SGOT) 11 U/L Alanine Aminotransferase (ALT/SGPT) 12 U/L Alkaline Phosphatase 56 U/L Total Protein 6.1 gm/dl Albumin 2.6 gm/dl Globulin 3.5 gm/dl Albumin/Globulin Ratio 0.7 Urine Osmolality 222 mOms/kg Test 09/13/17 05:33 White Blood Count 10.17 K/uL Red Blood Count 2.64 M/uL Hemoglobin 8.5 g/dL Hematocrit 24.3 % Mean Corpuscular Volume 92.0 fL Mean Corpuscular Hemoglobin 32.2 pg Mean Corpuscular Hemoglobin Concent 35.0 g/dl RDW Standard Deviation 42.4 fL RDW Coefficient of Variation 12.6 % Platelet Count 264 K/uL Mean Platelet Volume 9.7 fL Sodium Level 127 mmol/L Potassium Level 3.4 mmol/L Chloride Level 91 mmol/L Carbon Dioxide Level 31 mmol/L Anion Gap 5.0 mmol/L Blood Urea Nitrogen 28 mg/dl Creatinine 1.77 mg/dl Est Creatinine Clear Calc Drug Dose 39.2 ml/min Estimated GFR () 41.7 Estimated GFR (Non- 36.0 BUN/Creatinine Ratio 16.0 Random Glucose 94 mg/dl Osmolality 274 mOsm/kg Calcium Level 8.0 mg/dl Date/Time Source Procedure Growth Status 09/12/17 19:58 Blood Blood Culture Pending Received 09/12/17 19:51 Blood Blood Culture Pending Received 09/12/17 15:34 Urine , Clean Catch Urine Culture - Final THREE TYPES OF ORGANSIMS PRESENT, ALL... Complete Assessment & Plan S/P FALL WEAKNESS All imaging are negative fo fracture PT/OT Fall precaution HYPONATREMIA Serum sodium on admission 125. 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 Avoid potential nephrotoxins. Stable ABNORMAL UA UA shows leukocyte esterase, many WBCs, bacteria. WBC mildly elevated, now trends back to normal Urine culture contaminated Repeat urine cx ( Already starting on abx) Continue IV Rocephin CHRONIC LOWER EXTREMITY EDEMA Diuretic has been on hold Continue Thigh-high TEDS and Keep legs elevate HYPERTENSION BP stable Metoprolol was decreased due to bradycardia Will consider to had a low dose hydralazine if BP elevates BRADYCARDIA Was on metoprolol 50mg BID Did not receive morning dose Might consider to lower the metoprolol to 12.5 mg BID if remains Van ALCOHOL CONSUMPTION Drinks 3-4 beers per day. Alcohol withdrawal protocol ordered. No signs of withdrawn COPD Stable Continue Singulair, Spiriva daily and albuterol inhaler prn VTE PROPHYLAXIS No anticoagulants due to head injury. SCDs. Ambulate. CODE STATUS FULL CODE Current Inpatient Medications: Current Inpatient Medications Medications (Trade) Dose Ordered Sig/Arline Route Start Time Stop Time Status Last Admin Dose Admin Acetaminophen (Tylenol Tab) 650 mg Q4H PRN PO 09/12/17 18:15 18 18:14 09/13/17 00:19 650 MG Ondansetron HCl (Zofran Inj) 4 mg Q6H PRN IV 09/12/17 18:15 10/12/17 18:14 Nitroglycerin (Nitrostat Tab) 0.4 mg UD PRN SL 09/12/17 18:15 10/12/17 18:14 Polyethylene (Miralax Powder Packet) 17 gm DAILY PRN PO 09/12/17 18:15 18 18:14 Lorazepam (Ativan Tab) 1 mg ONE PRN PO 09/12/17 18:30 Ceftriaxone Sodium 1 gm/ Dextrose 50 ml @ 100 mls/hr Q24H IV 09/13/17 16:30 09/17/17 16:29 Albuterol (Ventolin Hfa Inhaler) 2 puffs QID PRN INH 09/12/17 18:45 10/12/17 18:44 Cyanocobalamin (Vitamin B-12 Tab) 500 mcg QAM PO 09/13/17 09:00 10/13/17 08:59 09/13/17 08:19 500 MCG Folic Acid (Folvite Tab) 1 mg QAM PO 09/13/17 09:00 10/13/17 08:59 09/13/17 08:19 1 MG Montelukast Sodium (Singulair Tab) 10 mg DAILY PO 09/13/17 09:00 10/13/17 08:59 09/13/17 08:19 10 MG Thiamine HCl (Vitamin B-1 Tab) 100 mg QAM PO 09/13/17 09:00 10/13/17 08:59 09/13/17 08:19 100 MG Tiotropium [place] (Spiriva Handihaler Inhaler) 30 puff QAM INH 09/13/17 09:00 10/13/17 08:59 09/13/17 08:18 1 PUFF Metoprolol Tartrate (Lopressor Tab) 25 mg BID PO 09/12/17 21:00 10/12/17 20:59 Gabapentin (Neurontin Cap) 100 mg Q6H PO 09/13/17 06:00 09/13/17 12:01 09/13/17 08:20 100 MG Gabapentin (Neurontin Tab) 600 mg Q24H PO 09/14/17 20:00 09/14/17 20:01 Gabapentin (Neurontin Cap) 400 mg Q24H PO 09/15/17 20:00 09/15/17 20:01 Gabapentin (Neurontin Cap) 200 mg Q24H PO 09/16/17 20:00 09/16/17 20:01
[2017-09-13] MEDS: CEFTRIAXONE SOD INJ 1 GM in DEXTROSE 5% ADD-VANTAGE 50ML 50 ML IV SCH (16:05)
[2017-09-13] MEDS ORDERED: VANCOMYCIN CONSULT ACTIVE PRN (18:15)
[2017-09-13] MEDS ORDERED: VANCOMYCIN INJ 2,000 MG in SODIUM CHLORIDE 0.9% 500ML 500 ML IV ONE (18:30)
--- NOTE | 2017-09-13 18:30 | Pharmacy Progress Note ---
Pharmacy Abx Initial Consult Date of Service Sep 13, 2017. Pharmacy Dosing Scope Date of Consult: 09/13/17 Consultation requested by: Dr. Sutton Pharmacy is consulted to initiate VANCOMYCIN IV therapy, order appropriate labs and adjust drug dose/frequency. Subjective The patient is a 77 year old male admitted on Sep 12, 2017 at 18:09 following a fall, weakness, hyponatremia, possible UTI Objective Height (Feet): 5 Height (Inches): 10.00 Weight (Kilograms): 92.400 Vital Signs (Past 12Hrs) Vital Signs Past 12 Hours Date Time Temp Pulse Resp B/P (MAP) Pulse Ox O2 Delivery O2 Flow Rate FiO2 09/13/17 16:00 Room Air 09/13/17 15:02 36.4 68 20 150/74 (99) 90 Room Air 09/13/17 12:00 Room Air 09/13/17 11:46 36.5 56 18 144/67 (92) 96 09/13/17 08:00 Room Air 09/13/17 07:51 36.6 52 18 133/66 (88) 96 Lab Results (24Hrs) Laboratory Tests (24 Hours) Test 09/13/17 05:33 White Blood Count 10.17 K/uL (4.8-10.8) Micro Results Date/Time Source Procedure Growth Status 09/12/17 19:58 Blood Blood Culture Pending Received 09/12/17 19:51 Blood Blood Culture - Preliminary Gram Positive Cocci Resulted 09/13/17 16:00 Urine , Clean Catch Urine Culture Pending Received 09/12/17 15:34 Urine , Clean Catch Urine Culture - Final THREE TYPES OF ORGANSIMS PRESENT, ALL... Complete Assessment & Plan Assessment * 77 year old male receiving Rocephin IV for treatment of possible UTI * 1 of 2 BLCX's is now growing GPC - vancomycin is being added empirically * No leukocytosis noted on today's labs, he remains afebrile, VSS however mild bradycardia continues * SCr of 1.77 reported to be close to his baseline Plan Vancomycin IV * Loading dose: 2000 mg (~21.6 mg/kg) * Maintenance dose: 1500 mg IV (16.2 mg/kg) every 24 hours * Goal trough level for bacteremia : 15 to 20 mcg/mL * Trough level ordered for 09/16/17 w/ 3rd maintenance dose * p'kinetic estimates: Vd 0.7L/kg; half-life ~18-19 hours Pharmacy will continue to follow and will adjust dose/frequency as necessary. Thank you.
[2017-09-14] VITALS (7 sets, daily range): BP systolic 134–161; BP diastolic 50–71; PULSE 65–76; TEMP 36.5–37.2; O2SAT 94–98
[2017-09-14 06:52] LABS: CREATININE 1.7 mg/dl (0.60-1.40)
[2017-09-14] MEDS: THIAMINE HCL 100 MG TAB PO SCH (07:45)
[2017-09-14] MEDS: MONTELUKAST SOD 10 MG TAB PO SCH (07:45)
[2017-09-14] MEDS: CYANOCOBALAMIN 500 MCG TAB (VIT B-12) PO SCH (07:45)
[2017-09-14] MEDS: METOPROLOL TARTRATE 25 MG TAB PO SCH ×2 (07:45→20:14)
[2017-09-14] MEDS: TIOTROPIUM BROMIDE 5 PUFF/90 MCG INH INH SCH ×2 (07:47→09:00)
[2017-09-14 08:07] LABS: HEMOGLOBIN 9.3 g/dL (14.0-18.0); MEAN CELL VOLUME 93.9 fL (80-100); MEAN CORPUSCULAR HEMOGLOBIN 33.6 pg (25-34); MEAN CORPUSCULAR HGB CONC 35.8 g/dl (32-36); MEAN PLATELET VOLUME 10.4 fL (7.4-10.4); PLATELET COUNT 273 K/uL (130-400); RED CELL DISTRIBUTION WIDTH CV 12.7 % (11.5-14.5); RED CELL DISTRIBUTION WIDTH SD 43.9 fL (36.4-46.3); WHITE BLOOD COUNT 12.19 K/uL (4.8-10.8)
[2017-09-14 08:38] LABS: CALCIUM 8.3 mg/dl (8.5-10.1); CREATININE 1.73 mg/dl (0.60-1.40); POTASSIUM 4.2 mmol/L (3.5-5.1)
[2017-09-14] MEDS ORDERED: PERFLUTREN LIPID MICROSPHERE (DEFINITY) IV ONE (10:21)
--- NOTE | 2017-09-14 14:25 | ECHOCARDIOGRAM REPORT ---
*NOTICE TO RECEIVING [facility] [employer] This information is strictly Confidential and protected under [place] law. [place] law prohibits you from making any further disclosure of this information unless further disclosure is expressly permitted by the written consent of the person to whom it pertains or is authorized by law. A general authorization for the release of medical or other information is not sufficient for this purpose. Hospital accepts no responsibility if the information is made available to any other person, INCLUDING THE PATIENT. Interpretation Summary * Name: VALENTE BHAGAT Study Date: 09/14/2017 09:49 AM BP: 151/70 mmHg * Patient Location: C.2T\S\S231\S\1 HR: 62 * : 1940 (M/d/yyyy) Gender: Male Height: 70 in * Age: 77 yrs Ethnicity: CA Weight: 203 lb * Ordering Physician: Martínez Sutton * Referring Physician: Self, Referred * Performed By: Rajesh Lozada RDCS * * Reason For Study: Endocarditis * BSA: 2.1 m2 * -- Conclusions -- * The left ventricle is normal in size. * There is moderate concentric left ventricular hypertrophy. * The basal septum is thickened and angulated consistent with sigmoid septum. * Left ventricular systolic function is normal. * The left ventricular wall motion is normal. * Ejection Fraction = 60-65%. * Aortic valve sclerosis moderate, without significant aortic valvular stenosis. * Trace aortic regurgitation. * Cannot exclude aortic valvular vegetation due to calcification Procedure Details * A complete two-dimensional transthoracic echocardiogram was performed (2D, M-mode, Doppler and color flow Doppler). * The study was technically difficult, but visualization was adequate with the administration of Definity ultrasound contrast. * A contrast injection of Definity was performed to improve assessment of LV function. * Contrast was injected into an intravenous site in the right arm. * One vial of Definity ultrasound contrast was diluted in normal saline to a total volume of 10 ml. A total of '5' ml of solution was administered during imaging. * Lot # [id number] of Definity utilized for procedure. * Expiration date . * The attending nurse who injected the contrast agent was Moo Zaragoza RN. Left Ventricle * The left ventricle is normal in size. * There is moderate concentric left ventricular hypertrophy. * The basal septum is thickened and angulated consistent with sigmoid septum. * Left ventricular systolic function is normal. * Ejection Fraction = 60-65%. * The left ventricular wall motion is normal. Right Ventricle * The right ventricle is normal in size and function. Atria * The left atrial size is normal. * Right atrial size is normal. * No ASD detected; PFO is not assessed. Mitral Valve * There is mild mitral annular calcification. * There is no mitral valve stenosis. * There is trace mitral regurgitation. Tricuspid Valve * The tricuspid valve is not well visualized, but is grossly normal. * There is no tricuspid stenosis. * There is trace tricuspid regurgitation. * Right ventricular systolic pressure is elevated at 30-40mmHg. Aortic Valve * The aortic valve is trileaflet. * Aortic valve sclerosis moderate, without significant aortic valvular stenosis. * Cannot exclude aortic valvular vegetation. * Trace aortic regurgitation. Pulmonic Valve * The pulmonic valve is not well visualized. Great Vessels * The aortic root is normal size. Pericardium/Pleural * There is no pericardial effusion. Great Vessels * Normal inferior vena cava diameter and respiratory variation suggests normal central venous pressure. MMode 2D Measurements and Calculations IVSd 1.4 cm IVSs 2.0 cm LVIDd 4.0 cm LVIDs 2.5 cm LVPWd 1.4 cm LVPWs 2.1 cm IVS/LVPW 1.0 FS 37.9 % EDV(Teich) 70.9 ml ESV(Teich) 22.2 ml EF(Teich) 68.6 % EDV(cubed) 65.0 ml ESV(cubed) 15.6 ml EF(cubed) 76.1 % % IVS thick 41.4 % % LVPW thick 53.2 % LV mass(C)d 204.6 grams LV mass(C)dI 97.4 grams/m\S\2 LV mass(C)s 220.7 grams LV mass(C)sI 105.1 grams/m\S\2 SV(Teich) 48.6 ml SI(Teich) 23.1 ml/m\S\2 SV(cubed) 49.4 ml SI(cubed) 23.5 ml/m\S\2 Ao root diam 3.2 cm Ao root area 8.0 cm\S\2 ACS 1.7 cm LA dimension 3.8 cm asc Aorta Diam 3.7 cm LA/Ao 1.2 LVOT diam 2.0 cm LVOT area 3.0 cm\S\2 LVAd ap4 26.6 cm\S\2 LVLd ap4 6.9 cm EDV(MOD-sp4) 83.5 ml EDV(sp4-el) 86.7 ml LVAs ap4 12.4 cm\S\2 LVLs ap4 5.7 cm ESV(MOD-sp4) 22.4 ml ESV(sp4-el) 22.8 ml EF(MOD-sp4) 73.1 % EF(sp4-el) 73.7 % LVAd ap2 29.8 cm\S\2 LVLd ap2 7.8 cm EDV(MOD-sp2) 98.0 ml EDV(sp2-el) 96.7 ml LVAs ap2 11.0 cm\S\2 LVLs ap2 5.7 cm ESV(MOD-sp2) 17.1 ml ESV(sp2-el) 17.9 ml EF(MOD-sp2) 82.6 % EF(sp2-el) 81.4 % LVLd %diff 11.0 % EDV(MOD-bp) 95.0 ml LVLs %diff 0.14 % ESV(MOD-bp) 19.3 ml EF(MOD-bp) 79.7 % SV(MOD-sp4) 61.0 ml SI(MOD-sp4) 29.1 ml/m\S\2 SV(MOD-sp2) 80.9 ml SI(MOD-sp2) 38.5 ml/m\S\2 SV(MOD-bp) 75.7 ml SI(MOD-bp) 36.1 ml/m\S\2 SV(sp4-el) 63.9 ml SI(sp4-el) 30.4 ml/m\S\2 SV(sp2-el) 78.7 ml SI(sp2-el) 37.5 ml/m\S\2 Doppler Measurements and Calculations MV E max tete 90.5 cm/sec MV A max tete 98.9 cm/sec MV E/A 0.92 MV dec time 0.30 sec Ao V2 max 164.1 cm/sec Ao max PG 10.8 mmHg Ao max PG (full) 5.0 mmHg AJ(V,A) 2.2 cm\S\2 AJ(V,D) 2.2 cm\S\2 LV V1 max PG 5.8 mmHg LV V1 max 120.2 cm/sec PA V2 max 119.1 cm/sec PA max PG 5.7 mmHg PA acc slope 701.7 cm/sec\S\2 PA acc time 0.09 sec TR max tete 305.0 cm/sec PA pr(Accel) 37.3 mmHg
[2017-09-14] MEDS: CEFTRIAXONE SOD INJ 1 GM in DEXTROSE 5% ADD-VANTAGE 50ML 50 ML IV SCH (16:01)
--- NOTE | 2017-09-14 17:37 | Progress Note ---
Medicine Progress Note Date & Time of Visit: Sep 14, 2017 at 17:17. Subjective Pt was seen and examined Lying in bed with no distress Pt said that he feels fine He continues to require intermittent straight cath Pt denies any chest pain, palpitation, dizziness and SOB Objective Last 8 Hrs Date Time Temp Pulse Resp B/P (MAP) Pulse Ox O2 Delivery O2 Flow Rate FiO2 09/14/17 16:00 Room Air 09/14/17 15:25 37.0 76 18 152/64 (93) 96 Room Air 09/14/17 12:00 Room Air 09/14/17 11:09 37.2 75 20 161/50 (87) 98 Room Air Physical Exam: General- No acute distress Head- abrasions right forehead and face Eyes- PERRL, EOMI ENT- oropharynx clear Neck- supple, no JVD Lungs- No wheezing, no crackles Heart-Bradycardia Abdomen- normal bowel sounds, soft Extremities- no calf tenderness, +RLE edema Neuro- alert, oriented x 3; PERRL, EOMI; Skin- Ecchymoses in extremities Laboratory Results: Last 24 Hours Test 09/14/17 05:45 09/14/17 07:36 Creatinine 1.70 mg/dl 1.73 mg/dl Est Creatinine Clear Calc Drug Dose 40.6 ml/min 39.9 ml/min Estimated GFR () 43.8 42.9 Estimated GFR (Non- 37.8 37.0 White Blood Count 12.19 K/uL Red Blood Count 2.77 M/uL Hemoglobin 9.3 g/dL Hematocrit 26.0 % Mean Corpuscular Volume 93.9 fL Mean Corpuscular Hemoglobin 33.6 pg Mean Corpuscular Hemoglobin Concent 35.8 g/dl RDW Standard Deviation 43.9 fL RDW Coefficient of Variation 12.7 % Platelet Count 273 K/uL Mean Platelet Volume 10.4 fL Sodium Level 132 mmol/L Potassium Level 4.2 mmol/L Chloride Level 96 mmol/L Carbon Dioxide Level 30 mmol/L Anion Gap 6.0 mmol/L Blood Urea Nitrogen 27 mg/dl BUN/Creatinine Ratio 15.7 Random Glucose 98 mg/dl Calcium Level 8.3 mg/dl Date/Time Source Procedure Growth Status 09/14/17 17:12 Blood Blood Culture Pending Ordered 09/14/17 17:12 Blood Blood Culture Pending Ordered Assessment & Plan S/P FALL WEAKNESS All imaging are negative for fracture PT/OT Fall precaution HYPONATREMIA Serum sodium on admission 125. 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 Avoid potential nephrotoxins. Stable ABNORMAL TSH TSH mildly elevated Check Free T4 and Total T3 ABNORMAL UA UA shows leukocyte esterase, many WBCs, bacteria. WBC mildly elevated, now trends back to normal Urine culture contaminated Repeat urine cx pending ( Already starting on abx) Continue IV Rocephin CHRONIC LOWER EXTREMITY EDEMA Diuretic has been on hold Continue Thigh-high TEDS and Keep legs elevate Will resume diuresis tomorrow HYPERTENSION KATIE elevated Metoprolol was decreased due to bradycardia HR has been stable Will increase metoprolol to 37.5mg URINARY RETENTION Has been required intermittent straight cath Reviewed outpatient chart showed pt has been straight cath twice daily BRADYCARDIA Was on metoprolol 50mg BID Will put on Metoprolol 37.5mg Resolved ALCOHOL CONSUMPTION Drinks 3-4 beers per day. Alcohol withdrawal protocol ordered. No signs of withdrawn COPD Stable Continue Singulair, Spiriva daily and albuterol inhaler prn VTE PROPHYLAXIS No anticoagulants due to head injury. SCDs. Ambulate. CODE STATUS FULL CODE Current Inpatient Medications: Current Inpatient Medications Medications (Trade) Dose Ordered Sig/[facility] Route Start Time Stop Time Status Last Admin Dose Admin Acetaminophen (Tylenol Tab) 650 mg Q4H PRN PO 09/12/17 18:15 10/12/17 18:14 09/13/17 18:51 650 MG Ondansetron HCl (Zofran Inj) 4 mg Q6H PRN IV 09/12/17 18:15 10/12/17 18:14 Nitroglycerin (Nitrostat Tab) 0.4 mg UD PRN SL 09/12/17 18:15 10/12/17 18:14 Polyethylene (Miralax Powder Packet) 17 gm DAILY PRN PO 09/12/17 18:15 3/17/18 18:14 Lorazepam (Ativan Tab) 1 mg ONE PRN PO 09/12/17 18:30 Ceftriaxone Sodium 1 gm/ Dextrose 50 ml @ 100 mls/hr Q24H IV 09/13/17 16:30 09/17/17 16:29 09/14/17 16:01 100 MLS/HR Albuterol (Ventolin Hfa Inhaler) 2 puffs QID PRN INH 09/12/17 18:45 10/12/17 18:44 Cyanocobalamin (Vitamin B-12 Tab) 500 mcg QAM PO 09/13/17 09:00 10/13/17 08:59 09/14/17 07:45 500 MCG Folic Acid (Folvite Tab) 1 mg QAM PO 09/13/17 09:00 10/13/17 08:59 09/14/17 07:45 1 MG Montelukast Sodium (Singulair Tab) 10 mg DAILY PO 09/13/17 09:00 10/13/17 08:59 09/14/17 07:45 10 MG Thiamine HCl (Vitamin B-1 Tab) 100 mg QAM PO 09/13/17 09:00 10/13/17 08:59 09/14/17 07:45 100 MG Metoprolol Tartrate (Lopressor Tab) 25 mg BID PO 09/12/17 21:00 10/12/17 20:59 09/14/17 07:45 25 MG Gabapentin (Neurontin Tab) 600 mg Q24H PO 09/14/17 20:00 09/14/17 20:01 Gabapentin (Neurontin Cap) 400 mg Q24H PO 09/15/17 20:00 09/15/17 20:01 Gabapentin (Neurontin Cap) 200 mg Q24H PO 09/16/17 20:00 09/16/17 20:01 Vancomycin HCl 1500 mg/Sodium Chloride 530 ml @ 200 mls/hr Q24H IV 09/14/17 18:00 09/28/17 17:59 Miscellaneous Information (Consult) 1 ea UD PRN N/A 09/13/17 18:15 10/13/17 18:14 Tiotropium [place] (Spiriva Handihaler Inhaler) 1 puff QAM INH 09/14/17 09:00 10/14/17 08:59
[2017-09-14] MEDS: VANCOMYCIN INJ 1,500 MG in SODIUM CHLORIDE 0.9% 500ML 500 ML IV SCH (18:02)
[2017-09-14] MEDS ORDERED: GABAPENTIN 600MG X1 DOSE PO SCH (20:00)
[2017-09-15] VITALS (9 sets, daily range): BP systolic 131–169; BP diastolic 63–69; PULSE 51–71; TEMP 36.3–37.2; O2SAT 94–99
[2017-09-15 06:29] LABS: HEMATOCRIT 22.7 % (42-52); HEMOGLOBIN 8.1 g/dL (14.0-18.0); MEAN CELL VOLUME 93.8 fL (80-100); MEAN CORPUSCULAR HEMOGLOBIN 33.5 pg (25-34); MEAN CORPUSCULAR HGB CONC 35.7 g/dl (32-36); MEAN PLATELET VOLUME 9.8 fL (7.4-10.4); PLATELET COUNT 237 K/uL (130-400); RED CELL DISTRIBUTION WIDTH CV 13.1 % (11.5-14.5); RED CELL DISTRIBUTION WIDTH SD 45.1 fL (36.4-46.3); WHITE BLOOD COUNT 10.56 K/uL (4.8-10.8)
[2017-09-15 07:00] LABS: CALCIUM 8.2 mg/dl (8.5-10.1); CREATININE 1.53 mg/dl (0.60-1.40); POTASSIUM 3.7 mmol/L (3.5-5.1)
--- NOTE | 2017-09-15 07:47 | Progress Note ---
Progress Note Date of Service Sep 15, 2017. Progress Note ID Consult Dictated #[id number] A/P: 1. + blood culture -Repeat pending, ? contaminant -continue abx for now -will follow, thank you
[2017-09-15] MEDS: TIOTROPIUM BROMIDE 5 PUFF/90 MCG INH INH SCH (07:49)
[2017-09-15] MEDS: METOPROLOL TARTRATE 25 MG TAB PO SCH ×2 (07:49→20:00)
[2017-09-15] MEDS: CYANOCOBALAMIN 500 MCG TAB (VIT B-12) PO SCH (07:49)
[2017-09-15] MEDS: MONTELUKAST SOD 10 MG TAB PO SCH (07:49)
[2017-09-15] MEDS: THIAMINE HCL 100 MG TAB PO SCH (07:49)
--- NOTE | 2017-09-15 10:30 | INFECT. DISEASE CONSULTATION ---
DATE OF CONSULTATION: 09/15/2017 HISTORY OF PRESENT ILLNESS: This is a 77-year-old gentleman who was admitted after he had a fall at home with a laceration to his right forehead. He does admit to feeling dizzy while walking and he fell forward. He did have a CAT scan of his head and cervical spine which were unremarkable. As part of his workup, blood cultures were done and 1 of 2 sets initially is growing gram positive cocci. He has been on vancomycin and Rocephin. He is tolerating antibiotics well. He denies any fevers or chills. He does have multiple bruises on the skin and a right face laceration. Repeat blood cultures are pending. He was also found to be hyponatremic and he is being treated for that. On my examination this morning, he is up and ambulating in his room with a walker. He does not feel that he needs assistance. He was directed to the chair. He denies any joint pain or muscle pain. He denies any dizziness or unsteadiness at this time. He denies any fevers or chills. He denies any chest pain, cough, shortness breath, nausea, vomiting or diarrhea. He does self-catheterize at home for the past year, but he denies any urinary symptoms currently. His UA was abnormal with +1 bacteria and greater than 30 white blood cells. His urine culture greater than 3 organisms and was considered contaminated. His remaining review of systems is unremarkable. PAST MEDICAL HISTORY: Significant for BPH, COPD on home oxygen 2 liters, hypertension, basal cell carcinoma, squamous cell carcinoma, peripheral arterial disease, scrotal carcinoma, and elevated PSA. PAST SURGICAL HISTORY: Significant for prostate biopsy. FAMILY HISTORY: Noncontributory. SOCIAL HISTORY: Significant for daily tobacco use. He does drink 3 beers daily. He lives alone. He denies any IV drug use. ALLERGIES: HE HAS ALLERGIES TO ASPIRIN AND PENICILLIN. MEDICATIONS: Include Neurontin, vancomycin, Spiriva, Zosyn, vitamin B12, folic acid, Singulair, vitamin B, Lopressor, albuterol, lorazepam, Tylenol, Zofran, nitroglycerin and MiraLax. PHYSICAL EXAMINATION: VITAL SIGNS: He is afebrile, pulse is 63, respiratory rate 21, blood pressure 145/63, oxygen saturation is 91% on 2 liters nasal cannula. GENERAL: He is awake, alert and oriented x3. He is in no acute distress. HEENT: Mucous membranes are moist. Extraocular muscles are intact. There is a laceration on the right forehead which is not currently bleeding. There is no surrounding erythema or purulent drainage. HEART: Regular. LUNGS: Coarse bilaterally with decreased breath sounds at the bases. ABDOMEN: Soft. There is no edema. SKIN: Without rash are multiple ecchymotic areas on his bilateral upper extremities. LABORATORY STUDIES: CBC today reveals a white blood cell count of 10.5, hemoglobin 8.1, and platelets are 237. Chemistry panel reveals a sodium of 134, potassium 3.7, chloride 100, bicarbonate 27, BUN 25, creatinine 1.5, and glucose is 93. TSH was elevated. UA was abnormal also. Blood cultures again from the 07/30 sets has gram positive cocci. Repeat blood cultures from the are pending. A repeat urine culture was done on the it is pin point and pending. IMAGING: As above. IMPRESSION AND PLAN: Positive blood culture contaminant versus true bacteremia. I will await further identification and repeat blood cultures. He will remain on antibiotics in the interim. Thank you for this consultation.
--- NOTE | 2017-09-15 16:11 | Progress Note ---
Medicine Progress Note Date & Time of Visit: Sep 15, 2017 at 15:49. Subjective Pt was seen and examined Sitting in bed with no distress Pt said that he feels much better today He continues to require intermittent straight cath to empty his bladder He said that he hasn't been straight cath himself for months to years He said that he used to follow with urology in the past, but stopped following with urologist Denies any chest pain, palpitation, dizziness and SOB Objective Last 8 Hrs Date Time Temp Pulse Resp B/P (MAP) Pulse Ox O2 Delivery O2 Flow Rate FiO2 09/15/17 12:00 Room Air 09/15/17 10:52 36.3 51 20 131/64 (86) 99 Room Air 09/15/17 08:00 Room Air Physical Exam: General- No acute distress Head- abrasions right forehead and face Eyes- PERRL, EOMI ENT- oropharynx clear Neck- supple, no JVD Lungs- No wheezing, no crackles Heart- Bradycardia Abdomen- normal bowel sounds, soft Extremities- no calf tenderness, +RLE edema Neuro- alert, oriented x 3; PERRL, EOMI; Skin- Ecchymoses in extremities Laboratory Results: Last 24 Hours Test 09/15/17 05:57 White Blood Count 10.56 K/uL Red Blood Count 2.42 M/uL Hemoglobin 8.1 g/dL Hematocrit 22.7 % Mean Corpuscular Volume 93.8 fL Mean Corpuscular Hemoglobin 33.5 pg Mean Corpuscular Hemoglobin Concent 35.7 g/dl RDW Standard Deviation 45.1 fL RDW Coefficient of Variation 13.1 % Platelet Count 237 K/uL Mean Platelet Volume 9.8 fL Sodium Level 134 mmol/L Potassium Level 3.7 mmol/L Chloride Level 100 mmol/L Carbon Dioxide Level 27 mmol/L Anion Gap 7.0 mmol/L Blood Urea Nitrogen 25 mg/dl Creatinine 1.53 mg/dl Est Creatinine Clear Calc Drug Dose 45.9 ml/min Estimated GFR () 49.7 Estimated GFR (Non- 42.9 BUN/Creatinine Ratio 16.2 Random Glucose 93 mg/dl Calcium Level 8.2 mg/dl Free Thyroxine 0.98 ng/dl Total Triiodothyronine 0.43 ng/ml Date/Time Source Procedure Growth Status 09/14/17 17:57 Blood Blood Culture Pending Received 2/17/18 17:39 Blood Blood Culture Pending Received Assessment & Plan S/P FALL WEAKNESS All imaging are negative for fracture PT/OT Fall precaution HYPONATREMIA Serum sodium on admission 125. 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 creatine improved to 1.5 Avoid potential nephrotoxins. Stable ABNORMAL TSH TSH mildly elevated Possible related to acute illness Free T4 normal Will need TSH check between 4 to 6 weeks UTI UA shows leukocyte esterase, many WBCs, bacteria. WBC mildly elevated, now trends back to normal First urine collection was Urine contaminated Repeat urine cx growth gram positive cocci ( Was already starting on Rocephin when collected) Consider to D/C IV Rocephin Continue IV vanco Follow up for sensitivity RIGHT KNEE SWELLING/TENDERNESS Mostly related to the Recent fall Will get an xray of the right knee Continue pain control CHRONIC LOWER EXTREMITY EDEMA Diuretic has been on hold Continue Thigh-high TEDS and Keep legs elevate Resume diuretic HYPERTENSION BP stable Metoprolol was decreased due to bradycardia HR has been stable Continue metoprolol 25mg URINARY RETENTION Has been required intermittent straight cath Reviewed outpatient chart showed pt has been straight cath twice daily Used to follow with Urology in the past Will start on Flomax Urology consult BRADYCARDIA Was on metoprolol 50mg BID Continue metoprolol 25 mg BID Resolved ALCOHOL CONSUMPTION Drinks 3-4 beers per day. Alcohol withdrawal protocol ordered. No signs of withdrawn COPD Stable Continue Singulair, Spiriva daily and albuterol inhaler prn VTE PROPHYLAXIS No anticoagulants due to head injury. SCDs. Ambulate. CODE STATUS FULL CODE Consultants: ID Urology Current Inpatient Medications: Current Inpatient Medications Medications (Trade) Dose Ordered Sig/[facility] Route Start Time Stop Time Status Last Admin Dose Admin Acetaminophen (Tylenol Tab) 650 mg Q4H PRN PO 09/12/17 18:15 10/12/17 18:14 09/13/17 18:51 650 MG Ondansetron HCl (Zofran Inj) 4 mg Q6H PRN IV 09/12/17 18:15 10/12/17 18:14 Nitroglycerin (Nitrostat Tab) 0.4 mg UD PRN SL 09/12/17 18:15 10/12/17 18:14 Polyethylene (Miralax Powder Packet) 17 gm DAILY PRN PO 09/12/17 18:15 10/12/17 18:14 Lorazepam (Ativan Tab) 1 mg ONE PRN PO 09/12/17 18:30 Ceftriaxone Sodium 1 gm/ Dextrose 50 ml @ 100 mls/hr Q24H IV 09/13/17 16:30 09/17/17 16:29 09/14/17 16:01 100 MLS/HR Albuterol (Ventolin Hfa Inhaler) 2 puffs QID PRN INH 09/12/17 18:45 10/12/17 18:44 Cyanocobalamin (Vitamin B-12 Tab) 500 mcg QAM PO 09/13/17 09:00 10/13/17 08:59 09/15/17 07:49 500 MCG Folic Acid (Folvite Tab) 1 mg QAM PO 09/13/17 09:00 10/13/17 08:59 09/15/17 07:49 1 MG Montelukast Sodium (Singulair Tab) 10 mg DAILY PO 09/13/17 09:00 10/13/17 08:59 09/15/17 07:49 10 MG Thiamine HCl (Vitamin B-1 Tab) 100 mg QAM PO 09/13/17 09:00 10/13/17 08:59 09/15/17 07:49 100 MG Metoprolol Tartrate (Lopressor Tab) 25 mg BID PO 09/12/17 21:00 10/12/17 20:59 09/15/17 07:49 25 MG Gabapentin (Neurontin Cap) 400 mg Q24H PO 09/15/17 20:00 09/15/17 20:01 Gabapentin (Neurontin Cap) 200 mg Q24H PO 09/16/17 20:00 09/16/17 20:01 Vancomycin HCl 1500 mg/Sodium Chloride 530 ml @ 200 mls/hr Q24H IV 09/14/17 18:00 09/28/17 17:59 09/14/17 18:02 200 MLS/HR Miscellaneous Information (Consult) 1 ea UD PRN N/A 09/13/17 18:15 10/13/17 18:14 Tiotropium [place] (Spiriva Handihaler Inhaler) 1 puff QAM INH 09/14/17 09:00 10/14/17 08:59 09/15/17 07:49 1 PUFF
[2017-09-15] MEDS: CEFTRIAXONE SOD INJ 1 GM in DEXTROSE 5% ADD-VANTAGE 50ML 50 ML IV SCH (17:17)
[2017-09-15] MEDS: VANCOMYCIN INJ 1,500 MG in SODIUM CHLORIDE 0.9% 500ML 500 ML IV SCH (17:20)
[2017-09-15] MEDS ORDERED: GABAPENTIN 400MG X1 DOSE PO SCH (20:00)
--- NOTE | 2017-09-15 20:19 | DIAGNOSTIC IMAGING REPORT ---
RIGHT KNEE 3 VIEWS HISTORY: Right Knee pain/swelling COMPARISON: None. FINDINGS: Small knee effusion. No acute fracture or dislocation. Old, healed proximal fibular fracture. No radiopaque foreign bodies. IMPRESSION: 1. No acute fracture or dislocation within the right knee. 2. Small knee effusion. Electronically signed by: Estevan Smith M.D. 09/15/2017 8:18 PM Dictated Date/Time: 09/15/2017 8:17 PM
[2017-09-15] MEDS ORDERED: TAMSULOSIN HCL 0.4 MG CAP PO SCH (21:00)
[2017-09-16] VITALS (7 sets, daily range): BP systolic 125–151; BP diastolic 49–69; PULSE 53–70; TEMP 36.6–36.9; O2SAT 93–99
[2017-09-16 05:54] LABS: HEMATOCRIT 23.1 % (42-52); HEMOGLOBIN 8.2 g/dL (14.0-18.0); MEAN CELL VOLUME 94.7 fL (80-100); MEAN CORPUSCULAR HEMOGLOBIN 33.6 pg (25-34); MEAN CORPUSCULAR HGB CONC 35.5 g/dl (32-36); MEAN PLATELET VOLUME 10.2 fL (7.4-10.4); PLATELET COUNT 248 K/uL (130-400); RED CELL DISTRIBUTION WIDTH CV 13.1 % (11.5-14.5); RED CELL DISTRIBUTION WIDTH SD 45.5 fL (36.4-46.3); WHITE BLOOD COUNT 12.47 K/uL (4.8-10.8)
[2017-09-16 06:26] LABS: CALCIUM 8.1 mg/dl (8.5-10.1); CREATININE 1.51 mg/dl (0.60-1.40); POTASSIUM 3.7 mmol/L (3.5-5.1)
[2017-09-16] MEDS: TIOTROPIUM BROMIDE 5 PUFF/90 MCG INH INH SCH (07:54)
[2017-09-16] MEDS: METOPROLOL TARTRATE 25 MG TAB PO SCH ×2 (07:55→19:58)
[2017-09-16] MEDS: MONTELUKAST SOD 10 MG TAB PO SCH (07:56)
[2017-09-16] MEDS: CYANOCOBALAMIN 500 MCG TAB (VIT B-12) PO SCH (07:56)
[2017-09-16] MEDS: THIAMINE HCL 100 MG TAB PO SCH (07:56)
--- NOTE | 2017-09-16 10:46 | Progress Note ---
Subjective Date of Service: Sep 16, 2017. Subjective Pt evaluation today including: conversation w/ patient, physical exam, chart review, lab review pt seen in followup, tolerating abx. repeat blood culture negative to date. now with alonso, blood tinged urine. urine and blood cultures with staph. final ID intial blood culture pending. no f/c. no abd pain, no n/v/d. oob to chair. no pain at face laceration. all remaining ros reviewed and are negatie. Problem List Medical Problems: (1) Closed head injury Status: Acute (2) Fall Status: Acute (3) Hyponatremia Status: Acute (4) UTI (urinary tract infection) Status: Acute Objective Vital Signs Date Time Temp Pulse Resp B/P (MAP) Pulse Ox O2 Delivery O2 Flow Rate FiO2 09/16/17 08:00 Room Air 09/16/17 07:34 36.9 59 20 125/55 (78) 93 Room Air 09/16/17 04:00 95 Nasal Cannula 09/16/17 03:49 36.9 67 22 139/60 (86) 98 Nasal Cannula 3.0 09/16/17 00:03 36.9 65 18 151/68 (95) 99 2.0 09/15/17 23:59 95 Nasal Cannula 09/15/17 20:00 95 Nasal Cannula 09/15/17 19:38 36.8 68 20 169/65 (99) 96 Room Air 09/15/17 16:00 Room Air 09/15/17 15:33 36.8 65 20 145/67 (93) 98 Room Air 09/15/17 12:00 Room Air 09/15/17 10:52 36.3 51 20 131/64 (86) 99 Room Air Physical Exam General Appearance: WD/WN, no apparent distress Eyes: normal inspection, EOMI Neck: supple Respiratory/Chest: lungs clear, normal breath sounds, no respiratory distress Cardiovascular: regular rate, rhythm, no edema Abdomen: non tender, soft Extremities: non-tender, no pedal edema Neurologic/Psychiatric: alert, oriented x 3 Skin: normal color Laboratory Results Item Value Date Time Blood Culture - Preliminary Resulted 09/14/17 1757 Blood NO GROWTH TO DATE. Blood Culture - Preliminary Resulted 09/14/17 1739 Blood NO GROWTH TO DATE. Urine Culture - Preliminary Resulted 09/13/17 1600 Urine , Clean Catch Gram Positive Cocci Blood Culture - Preliminary Resulted 09/12/171950 Blood Staph Species Blood Culture - Preliminary Resulted 09/12/171957 Blood NO GROWTH TO DATE. Last 24 Hours Test 09/16/17 05:13 White Blood Count 12.47 K/uL Red Blood Count 2.44 M/uL Hemoglobin 8.2 g/dL Hematocrit 23.1 % Mean Corpuscular Volume 94.7 fL Mean Corpuscular Hemoglobin 33.6 pg Mean Corpuscular Hemoglobin Concent 35.5 g/dl RDW Standard Deviation 45.5 fL RDW Coefficient of Variation 13.1 % Platelet Count 248 K/uL Mean Platelet Volume 10.2 fL Sodium Level 133 mmol/L Potassium Level 3.7 mmol/L Chloride Level 100 mmol/L Carbon Dioxide Level 25 mmol/L Anion Gap 8.0 mmol/L Blood Urea Nitrogen 24 mg/dl Creatinine 1.51 mg/dl Est Creatinine Clear Calc Drug Dose 46.0 ml/min Estimated GFR () 50.5 Estimated GFR (Non- 43.6 BUN/Creatinine Ratio 15.6 Random Glucose 93 mg/dl Calcium Level 8.1 mg/dl Assessment and Plan (1) Positive blood culture Assessment & Plan: follow final ID, repeat pending. (2) UTI (urinary tract infection)
--- NOTE | 2017-09-16 11:49 | Clinical Documentation Query ---
MEG Avila : CLINICAL DOCUMENTATION QUERY Patient is a 77 year old male admitted for evaluation of weakness s/p fall in the setting of hyponatremia. Admitted 09/12, and on 09/13 one of two cultures positive for Staph. Urine culture from 09/13 with MRSA. He is being treated with IV Vancomycin. Bacteremia was not documented/known until hospital day #3. To avoid certified coder uncertainty at time of discharge, consider explicit documentation as suggested below. Thank you. In your clinical opinion is this patient being managed for: ( ) (MRSA) bacteremia, POA ( ) Not Agree ( ) Other explanation of clinical findings (Please Explain) ( ) Unable to determine (Please Define) ( ) Need to Discuss The medical record reflects the following clinical findings, treatment, and risk factors. Clinical Indicators: As above Treatment: Vancomycin IV Risk Factors: Age Please clarify and document your clinical opinion in the progress notes and discharge summary. Terms such as "probable", "suspected", "likely", "questionable", "possible", or "still to be ruled out" are acceptable. IF IN AGREEMENT, YOU MUST DOCUMENT ABOVE DIAGNOSTIC STATEMENT IN DAILY PROGRESS NOTES AND DISCHARGE SUMMARY. This document is not part of the patient's record. Thank You, Berto Chamorro, DON [phone]
--- NOTE | 2017-09-16 17:08 | Urology Consultation ---
History General Date of Service: Sep 16, 2017. Chief Complaint: urinary retention Primary Care Physician: Roshan Robert M.D.(BELLA) Pt seen a urologist before?: Yes If yes, why?: urinary retention History of Present Illness I am asked by Dr Sutton to evaluate and treat patient for urinary retention. Patient used to follow in Urology last seen in spring. He was on cic at that time. He had urodynamic which showed an intact detrusor muscle function but he was felt to be to comorbid for surgery. He has been doing home cic 1-2 times per day with a 12 fr catheter. Back in 2012 I had encouraged him to use a larger catheter like size 18 and he found this too painful. He ia admitted for face pain after a few falls. He was incidentally noted to have a + urine culture and later one of 2 blood cultures showed some staph. He did not have any cystitis symptoms around time of admission. He has a alonso now. Laboratory Results Past 24 Hours Test 09/16/17 05:13 Range/Units White Blood Count 12.47 4.8-10.8 K/uL Red Blood Count 2.44 4.7-6.1 M/uL Hemoglobin 8.2 14.0-18.0 g/dL Hematocrit 23.1 42-52 % Mean Corpuscular Volume 94.7 80-100 fL Mean Corpuscular Hemoglobin 33.6 25-34 pg Mean Corpuscular Hemoglobin Concent 35.5 32-36 g/dl RDW Standard Deviation 45.5 36.4-46.3 fL RDW Coefficient of Variation 13.1 11.5-14.5 % Platelet Count 248 130-400 K/uL Mean Platelet Volume 10.2 7.4-10.4 fL Sodium Level 133 136-145 mmol/L Potassium Level 3.7 3.5-5.1 mmol/L Chloride Level 100 98-107 mmol/L Carbon Dioxide Level 25 21-32 mmol/L Anion Gap 8.0 3-11 mmol/L Blood Urea Nitrogen 24 7-18 mg/dl Creatinine 1.51 0.60-1.40 mg/dl Est Creatinine Clear Calc Drug Dose 46.0 ml/min Estimated GFR () 50.5 Estimated GFR (Non- 43.6 BUN/Creatinine Ratio 15.6 10-20 Random Glucose 93 70-99 mg/dl Calcium Level 8.1 8.5-10.1 mg/dl Labs were reviewed and are within normal limits unless listed below. Labs are available in the chart and at [facility] Problem List Medical Problems: (1) Closed head injury Status: Acute (2) Fall Status: Acute (3) Hyponatremia Status: Acute (4) UTI (urinary tract infection) Status: Acute Past History A Fib, COPD, coronary artery disease, high cholesterol, hypertension, vascular disease Family History Hypertension Social History Hx Tobacco Use In Past Year?: Yes Smoking: less than 1 pack/day Alcohol: daily (1 drink per day) Marital status: single Housing status: lives alone Occupation status: retired Immunizations History of Influenza Vaccine: Yes Influenza Vaccine Date: May 13, 2012 History of Tetanus Vaccine?: Yes Tetanus Immunization Date: May 23, 2010 History of Pneumococcal: Yes Pneumococcal Date: May 23, 2005 History of Hepatitis B Vaccine: No History of MDRO No Allergies Coded Allergies: Aspirin (Verified Allergy, Unknown, UNKNOWN, 09/12/17) Penicillins (Verified Allergy, Unknown, UNKNOWN, 09/12/17) Medications Home Medications: Home Meds and Scripts Medications Dose Route/Sig Max Daily Dose Days Date Category Zaroxolyn (Metolazone) 2.5 Mg Tab 2.5 Mg PO DAILY 09/12/17 Reported Singulair (Montelukast Sodium) 10 Mg Tab 1 Tab PO DAILY 90 09/12/17 Reported Vitamin B-1 (Thiamine HCl) 100 Mg Tab 100 Mg PO QAM 09/12/17 Reported Folvite (Folic Acid) 1 Mg Tab 1 Mg PO QAM 09/12/17 Reported Vitamin B12 500MCG (Cyanocobalamin) 500 Mcg Tab 500 Mcg PO QAM 09/12/17 Reported Lopressor (Metoprolol Tartrate) 50 Mg Tab 50 Mg PO BID 06/06/12 Reported Lasix (Furosemide) 20 Mg Tab 40 Mg PO QAM 06/06/12 Reported Ventolin Inhaler (Albuterol) Aers 2 Puffs INH QID PRN 05/23/12 Reported Oxygen Gas 2 Liters NA HS 05/23/12 Reported Spiriva Handihaler (Tiotropium [place]) 30 Puff/540 Mcg Aerp 1 Cap INH QAM 05/23/12 Reported Inpatient Medications: Current Inpatient Medications Medications (Trade) Dose Ordered Sig/Arline Route Start Time Stop Time Status Last Admin Dose Admin Acetaminophen (Tylenol Tab) 650 mg Q4H PRN PO 09/12/17 18:15 10/12/17 18:14 09/13/17 18:51 650 MG Ondansetron HCl (Zofran Inj) 4 mg Q6H PRN IV 09/12/17 18:15 10/12/17 18:14 Nitroglycerin (Nitrostat Tab) 0.4 mg UD PRN SL 09/12/17 18:15 10/12/17 18:14 Polyethylene (Miralax Powder Packet) 17 gm DAILY PRN PO 09/12/17 18:15 10/12/17 18:14 Lorazepam (Ativan Tab) 1 mg ONE PRN PO 09/12/17 18:30 Albuterol (Ventolin Hfa Inhaler) 2 puffs QID PRN INH 09/12/17 18:45 10/12/17 18:44 Cyanocobalamin (Vitamin B-12 Tab) 500 mcg QAM PO 09/13/17 09:00 10/13/17 08:59 09/16/17 07:56 500 MCG Folic Acid (Folvite Tab) 1 mg QAM PO 09/13/17 09:00 10/13/17 08:59 09/16/17 07:56 1 MG Montelukast Sodium (Singulair Tab) 10 mg DAILY PO 09/13/17 09:00 10/13/17 08:59 09/16/17 07:56 10 MG Thiamine HCl (Vitamin B-1 Tab) 100 mg QAM PO 09/13/17 09:00 10/13/17 08:59 09/16/17 07:56 100 MG Metoprolol Tartrate (Lopressor Tab) 25 mg BID PO 09/12/17 21:00 10/12/17 20:59 09/16/17 07:55 25 MG Gabapentin (Neurontin Cap) 200 mg Q24H PO 09/16/17 20:00 09/16/17 20:01 Vancomycin HCl 1500 mg/Sodium Chloride 530 ml @ 200 mls/hr Q24H IV 09/14/17 18:00 09/28/17 17:59 09/15/17 17:20 200 MLS/HR Miscellaneous Information (Consult) 1 ea UD PRN N/A 09/13/17 18:15 10/13/17 18:14 Tiotropium [place] (Spiriva Handihaler Inhaler) 1 puff QAM INH 09/14/17 09:00 10/14/17 08:59 09/16/17 07:54 1 PUFF Review of Systems Review of Systems Constitutional: No fever, No chills, No weight loss Endocrine: + tired/sluggish, No excessive thirst, No too hot, No too cold Gastrointestinal: No constipation, No diarrhea Cardiovascular: + swelling ankles/feet, No chest pain, No palpitations Respiratory: + shortness of breath, + wheezing, + chronic cough Musculoskeletal: + joint pain (right knee is sore since fall) Male : + frequent urination, + urinary retention, + weak stream, + nocturia more than once/night Physical Exam Vital Signs: Vital Signs Past 12 Hours Date Time Temp Pulse Resp B/P (MAP) Pulse Ox O2 Delivery O2 Flow Rate FiO2 09/16/17 15:44 36.6 64 18 147/69 (95) 95 Room Air 09/16/17 12:00 Room Air 09/16/17 10:46 36.6 53 20 129/49 (75) 99 09/16/17 08:00 Room Air 09/16/17 07:34 36.9 59 20 125/55 (78) 93 Room Air Physical Exam: General Appearance: WD/WN, no apparent distress, + obese Eyes: bilateral eyes normal inspection ENT: hearing grossly normal Neck: no adenopathy, no JVD, trachea midline Respiratory/Chest: + pertinent finding (wet cough, no accessory muscle use) Gastrointestinal: Abdomen: normal abdomen Renal: normal renal Hernia: absent hernia Genitourinary - Male: Urethral Meatus: normal urethral meatus, pertinent finding (alonso draining sunita urine) Extremities: + pertinent finding (right leg is with 1+ edema and is warmer than left leg, left leg no edema) Neurologic/Psychiatric: alert, normal mood/affect, oriented x 3 Assessment & Plan Assessment & Plan long standing urinary retention options are cic or alonso We agree he is still too comorbid for surgery He opts for cic plans to do 2x per day I encouraged him to upsize cath to 14 or 16 fr. see me prn
[2017-09-16] MEDS ORDERED: VANCOMYCIN TROUGH ONE (17:30)
[2017-09-16] MEDS: VANCOMYCIN INJ 1,500 MG in SODIUM CHLORIDE 0.9% 500ML 500 ML IV SCH (18:43)
[2017-09-16] MEDS ORDERED: GABAPENTIN 200MG X1 DOSE PO SCH (20:00)
[2017-09-16] MEDS: ACETAMINOPHEN 325 MG TAB PO PRN (23:53)
[2017-09-17] VITALS (8 sets, daily range): BP systolic 135–150; BP diastolic 63–78; PULSE 57–72; TEMP 36.5–37; O2SAT 90–99
[2017-09-17] MEDS: MONTELUKAST SOD 10 MG TAB PO SCH (07:38)
[2017-09-17] MEDS: METOPROLOL TARTRATE 25 MG TAB PO SCH ×2 (07:38→20:59)
[2017-09-17] MEDS: THIAMINE HCL 100 MG TAB PO SCH (07:39)
[2017-09-17] MEDS: CYANOCOBALAMIN 500 MCG TAB (VIT B-12) PO SCH (07:39)
[2017-09-17 08:43] LABS: HEMOGLOBIN 8.4 g/dL (14.0-18.0); MEAN CELL VOLUME 94.1 fL (80-100); MEAN CORPUSCULAR HEMOGLOBIN 32.9 pg (25-34); MEAN PLATELET VOLUME 9.7 fL (7.4-10.4); PLATELET COUNT 249 K/uL (130-400); RED CELL DISTRIBUTION WIDTH CV 13.1 % (11.5-14.5); RED CELL DISTRIBUTION WIDTH SD 45.3 fL (36.4-46.3); WHITE BLOOD COUNT 10.18 K/uL (4.8-10.8)
[2017-09-17] MEDS: TIOTROPIUM BROMIDE 5 PUFF/90 MCG INH INH SCH (09:00)
[2017-09-17 09:11] LABS: CALCIUM 8.2 mg/dl (8.5-10.1); CREATININE 1.34 mg/dl (0.60-1.40); POTASSIUM 3.4 mmol/L (3.5-5.1)
--- NOTE | 2017-09-17 13:25 | Progress Note ---
Subjective Date of Service: Sep 17, 2017. Subjective Pt evaluation today including: conversation w/ patient, conversation w/ family , physical exam, chart review, lab review pt seen in followup, oob to chair, alonso remains in place. bloody urine noted. saw urology this admission, states he does not know plan for alonso duration. no f/c. repeat blood cultures negative. initial culture with hr director, also hr director in urine but differing sensitivities. no abd pain. remains on vanco, tolerating well. no n/v/d/abd pain. all remaining ros reviewed and are negative. Problem List Medical Problems: (1) Closed head injury Status: Acute (2) Fall Status: Acute (3) Hyponatremia Status: Acute (4) UTI (urinary tract infection) Status: Acute Objective Vital Signs Date Time Temp Pulse Resp B/P (MAP) Pulse Ox O2 Delivery O2 Flow Rate FiO2 09/17/17 11:59 36.5 57 18 148/65 (92) 99 Room Air 09/17/17 11:14 Room Air 09/17/17 08:00 Room Air 09/17/17 08:00 36.7 71 16 150/67 (94) 90 Room Air 09/17/17 04:00 Room Air 09/17/17 03:39 36.6 63 16 135/64 (87) 94 Room Air 09/17/17 00:13 37.0 63 20 146/64 (91) 94 09/16/17 23:59 Room Air 09/16/17 20:00 Room Air 09/16/17 19:32 36.9 70 20 150/67 (94) 95 Room Air 09/16/17 16:00 Room Air 09/16/17 15:44 36.6 64 18 147/69 (95) 95 Room Air Physical Exam General Appearance: WD/WN, no apparent distress Eyes: normal inspection, EOMI Neck: supple Respiratory/Chest: lungs clear, normal breath sounds, no respiratory distress Cardiovascular: regular rate, rhythm, no edema Abdomen: soft Extremities: non-tender, no pedal edema Neurologic/Psychiatric: alert, oriented x 3 Skin: normal color Laboratory Results Item Value Date Time Blood Culture - Preliminary Resulted 09/14/17 1757 Blood NO GROWTH TO DATE. Blood Culture - Preliminary Resulted 09/14/17 1739 Blood NO GROWTH TO DATE. Urine Culture - Final Complete 09/13/17 1600 Urine , Clean Catch Coag Neg Staphylococcus#2 Blood Culture - Final Complete 09/12/171950 Blood Coag Neg Staph Not Lugdunensis Blood Culture - Preliminary Resulted 09/12/171957 Blood NO GROWTH TO DATE. Last 24 Hours Test 09/16/17 17:24 09/17/17 08:31 Vancomycin Level Trough 18.7 mcg/ml White Blood Count 10.18 K/uL Red Blood Count 2.55 M/uL Hemoglobin 8.4 g/dL Hematocrit 24.0 % Mean Corpuscular Volume 94.1 fL Mean Corpuscular Hemoglobin 32.9 pg Mean Corpuscular Hemoglobin Concent 35.0 g/dl RDW Standard Deviation 45.3 fL RDW Coefficient of Variation 13.1 % Platelet Count 249 K/uL Mean Platelet Volume 9.7 fL Sodium Level 131 mmol/L Potassium Level 3.4 mmol/L Chloride Level 98 mmol/L Carbon Dioxide Level 25 mmol/L Anion Gap 8.0 mmol/L Blood Urea Nitrogen 17 mg/dl Creatinine 1.34 mg/dl Est Creatinine Clear Calc Drug Dose 51.9 ml/min Estimated GFR () 58.4 Estimated GFR (Non- 50.4 BUN/Creatinine Ratio 12.8 Random Glucose 145 mg/dl Calcium Level 8.2 mg/dl Assessment and Plan (1) Positive blood culture Assessment & Plan: suspect contaminant 1/2 sets, repeat negative. on vanco for uti. stop on 09/19 (2) UTI (urinary tract infection) Assessment & Plan: continue vanco until 09/19
--- NOTE | 2017-09-17 13:46 | Pharmacy Progress Note ---
Pharmacy Abx Dose Short Note Date of Service Sep 17, 2017. Assessment & Plan Assessment 77 year old male receiving vancomycin for treatment of UTI, possible bacteremia but considered to be contaminant Day # 47 of antimicrobial therapy. Plan Vancomycin * Trough level of 18.7 mcg/mL is therapeutic * Continue dose of 1500 mg IV every 24 hours * Goal trough level for UTI with coag negative staph : ~15 mcg/mL Pharmacy will continue to follow and will adjust dose/frequency as necessary. Thank you.
[2017-09-17] MEDS ORDERED: POTASSIUM CHLORIDE 20 MEQ TABCR PO ONE (16:00)
--- NOTE | 2017-09-17 16:30 | Progress Note ---
Medicine Progress Note Date & Time of Visit: Sep 17, 2017 at 16:20. Subjective seen resting in bed, comfortable states he feels improved overall denies dizziness, shortness of breath, chest pain denies abdominal pain no other symptoms Objective Last 8 Hrs Date Time Temp Pulse Resp B/P (MAP) Pulse Ox O2 Delivery O2 Flow Rate FiO2 09/17/17 16:00 36.8 67 18 145/78 (100) 99 Room Air 09/17/17 15:31 Room Air 09/17/17 11:59 36.5 57 18 148/65 (92) 99 Room Air 09/17/17 11:14 Room Air Physical Exam: General- oriented x 3, not in distress, speaks in sentences with no effort Head- atraumatic Eyes- PERRL, EOMI, anicteric ENT- oropharynx clear Neck- supple, no JVD, no adenopathy, no thyromegaly; carotids +2/2 Lungs- clear breath sounds bilaterally Heart- regular rhythm; no murmur, normal rate Abdomen- normal bowel sounds, soft, nontender Extremities- trace pretibial edema, no calf tenderness; peripheral pulses intact Neuro- alert, oriented x 3; no gross focal deficits Skin- warm & dry Laboratory Results: Last 24 Hours Test 09/16/17 17:24 09/17/17 08:31 09/17/17 16:02 Vancomycin Level Trough 18.7 mcg/ml White Blood Count 10.18 K/uL Red Blood Count 2.55 M/uL Hemoglobin 8.4 g/dL Hematocrit 24.0 % Mean Corpuscular Volume 94.1 fL Mean Corpuscular Hemoglobin 32.9 pg Mean Corpuscular Hemoglobin Concent 35.0 g/dl RDW Standard Deviation 45.3 fL RDW Coefficient of Variation 13.1 % Platelet Count 249 K/uL Mean Platelet Volume 9.7 fL Sodium Level 131 mmol/L Potassium Level 3.4 mmol/L Chloride Level 98 mmol/L Carbon Dioxide Level 25 mmol/L Anion Gap 8.0 mmol/L Blood Urea Nitrogen 17 mg/dl Creatinine 1.34 mg/dl Est Creatinine Clear Calc Drug Dose 51.9 ml/min Estimated GFR () 58.4 Estimated GFR (Non- 50.4 BUN/Creatinine Ratio 12.8 Random Glucose 145 mg/dl Calcium Level 8.2 mg/dl Assessment & Plan S/P FALL WEAKNESS All imaging are negative for fracture PT/OT: recommend return home Fall precaution HYPONATREMIA 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 creatine improved to 1.3 ABNORMAL TSH TSH mildly elevated Possible related to acute illness Free T4 normal Will need TSH check between 4 to 6 weeks RIGHT KNEE SWELLING/TENDERNESS Mostly related to the Recent fall - xray: no fracture, dislocation no effusion CHRONIC LOWER EXTREMITY EDEMA Diuretic has been on hold Continue Thigh-high TEDS and Keep legs elevate --May need to resume lower diuretic dose HYPERTENSION BP stable Metoprolol was decreased due to bradycardia HR has been stable Continue metoprolol 25mg URINARY RETENTION Has been required intermittent straight cath Reviewed outpatient chart showed pt has been straight cath twice daily --Urology consulted Recommend intermittent straight cath Follow-up as an outpatient with Dr. Reyes BRADYCARDIA Was on metoprolol 50mg BID Continue metoprolol 25 mg BID Resolved ALCOHOL CONSUMPTION Drinks 3-4 beers per day. Alcohol withdrawal protocol ordered. No signs of withdrawn COPD Stable Continue Singulair, Spiriva daily and albuterol inhaler prn VTE PROPHYLAXIS No anticoagulants due to head injury. SCDs. Ambulate. CODE STATUS FULL CODE Consultants: [facility] Disposition Anticipate return home tomorrow when sodium stable Consultants: [facility] Current Inpatient Medications: Current Inpatient Medications Medications (Trade) Dose Ordered Sig/Arline Route Start Time Stop Time Status Last Admin Dose Admin Acetaminophen (Tylenol Tab) 650 mg Q4H PRN PO 09/12/17 18:15 10/12/17 18:14 09/16/17 23:53 650 MG Ondansetron HCl (Zofran Inj) 4 mg Q6H PRN IV 09/12/17 18:15 10/12/17 18:14 Nitroglycerin (Nitrostat Tab) 0.4 mg UD PRN SL 09/12/17 18:15 10/12/17 18:14 Polyethylene (Miralax Powder Packet) 17 gm DAILY PRN PO 09/12/17 18:15 10/12/17 18:14 Lorazepam (Ativan Tab) 1 mg ONE PRN PO 09/12/17 18:30 Albuterol (Ventolin Hfa Inhaler) 2 puffs QID PRN INH 09/12/17 18:45 10/12/17 18:44 Cyanocobalamin (Vitamin B-12 Tab) 500 mcg QAM PO 09/13/17 09:00 10/13/17 08:59 09/17/17 07:39 500 MCG Folic Acid (Folvite Tab) 1 mg QAM PO 09/13/17 09:00 10/13/17 08:59 09/17/17 07:39 1 MG Montelukast Sodium (Singulair Tab) 10 mg DAILY PO 09/13/17 09:00 10/13/17 08:59 09/17/17 07:38 10 MG Thiamine HCl (Vitamin B-1 Tab) 100 mg QAM PO 09/13/17 09:00 10/13/17 08:59 09/17/17 07:39 100 MG Metoprolol Tartrate (Lopressor Tab) 25 mg BID PO 09/12/17 21:00 10/12/17 20:59 09/17/17 07:38 25 MG Vancomycin HCl 1500 mg/Sodium Chloride 530 ml @ 200 mls/hr Q24H IV 09/14/17 18:00 09/19/17 23:59 09/16/17 18:43 200 MLS/HR Miscellaneous Information (Consult) 1 ea UD PRN N/A 09/13/17 18:15 10/13/17 18:14 Tiotropium [place] (Spiriva Handihaler Inhaler) 1 puff QAM INH 09/14/17 09:00 10/14/17 08:59 09/17/17 09:00 1 PUFF
[2017-09-17 16:51] LABS: CALCIUM 8.5 mg/dl (8.5-10.1); CREATININE 1.36 mg/dl (0.60-1.40)
[2017-09-17] MEDS: VANCOMYCIN INJ 1,500 MG in SODIUM CHLORIDE 0.9% 500ML 500 ML IV SCH (18:39)
[2017-09-18] VITALS (7 sets, daily range): BP systolic 144–156; BP diastolic 57–69; PULSE 63–72; TEMP 36.6–37; O2SAT 93–97
[2017-09-18] MEDS: ACETAMINOPHEN 325 MG TAB PO PRN (02:56)
[2017-09-18 06:31] LABS: CALCIUM 7.8 mg/dl (8.5-10.1); CREATININE 1.23 mg/dl (0.60-1.40)
[2017-09-18] MEDS: THIAMINE HCL 100 MG TAB PO SCH (09:06)
[2017-09-18] MEDS: CYANOCOBALAMIN 500 MCG TAB (VIT B-12) PO SCH (09:06)
[2017-09-18] MEDS: TIOTROPIUM BROMIDE 5 PUFF/90 MCG INH INH SCH (09:06)
[2017-09-18] MEDS: MONTELUKAST SOD 10 MG TAB PO SCH (09:06)
[2017-09-18] MEDS: METOPROLOL TARTRATE 25 MG TAB PO SCH (09:06)
[2017-09-18] MEDS: VANCOMYCIN INJ 1,500 MG in SODIUM CHLORIDE 0.9% 500ML 500 ML IV SCH (12:20)
--- NOTE | 2017-09-18 13:55 | Progress Note ---
Medicine Progress Note Date & Time of Visit: Sep 18, 2017 at 13:46. Subjective seen resting in bedside chair, comfortable states he feels well overall denies dizziness, weakness no chest pain , dyspnea, abdominal pain no other symptoms states he is ready and would like to go home Objective Last 8 Hrs Date Time Temp Pulse Resp B/P (MAP) Pulse Ox O2 Delivery O2 Flow Rate FiO2 09/18/17 12:00 Room Air 09/18/17 11:58 37.0 63 16 153/64 (93) 97 Room Air 09/18/17 08:00 Room Air 09/18/17 07:27 36.6 64 18 144/69 (94) 93 Physical Exam: General- oriented x 3, not in distress, speaks in sentences with no effort Eyes- anicteric Neck- supple, no JVD Lungs- clear breath sounds bilaterally, no rales/wheezes Heart- regular rhythm; no murmur, normal rate Abdomen- normal bowel sounds, soft, nontender Extremities- trace pretibial edema, no calf tenderness Neuro- alert, oriented x 3; no gross focal deficits Skin- warm & dry Laboratory Results: Last 24 Hours Test 09/17/17 16:02 09/17/17 19:30 09/18/17 05:23 Sodium Level 133 mmol/L 134 mmol/L Potassium Level 4.0 mmol/L 4.0 mmol/L Chloride Level 99 mmol/L 103 mmol/L Carbon Dioxide Level 27 mmol/L 23 mmol/L Anion Gap 7.0 mmol/L 8.0 mmol/L Blood Urea Nitrogen 21 mg/dl 19 mg/dl Creatinine 1.36 mg/dl 1.23 mg/dl Est Creatinine Clear Calc Drug Dose 51.1 ml/min 56.6 ml/min Estimated GFR () 57.4 64.8 Estimated GFR (Non- 49.5 55.9 BUN/Creatinine Ratio 15.6 15.5 Random Glucose 106 mg/dl 92 mg/dl Osmolality 277 mOsm/kg Calcium Level 8.5 mg/dl 7.8 mg/dl Urine Random Sodium 62 mEq/L Assessment & Plan S/P FALL WEAKNESS All imaging are negative for fracture PT/OT: recommend return home with home health services with PT Fall precaution HYPONATREMIA 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,in the setting of diuretic and possible poor oral intake -- given IV fluids and diuretics held -- Na 125 --> 133--> 134 -- discharge plan: reduce Lasix from 40mg to 20mg po daily hold Metolazone for now Fluid Restriction 1500cc/day -- repeat Na on ff up with PCP this Saturday monitor leg edema HYPOKALEMIA replaced repeat K on ff up this Saturday and regularly POSITIVE BLOOD CULTURE IN 1 BOTTLE - LIKELY CONTAMINANT - repeat blood cultures negative - ID was consulted UTI, STAPHYLOCOCCUS COAG NEG - received IV Vancomycin x 6 days - monitor CKD STAGE 3 Serum creatinine 1.7 on admission creatine improved to 1.3 monitor while on Lasix ABNORMAL TSH TSH mildly elevated Possible related to acute illness Free T4 normal Will need TSH check between 4 to 6 weeks RIGHT KNEE SWELLING/TENDERNESS Mostly related to the Recent fall - xray: no fracture, dislocation no effusion - denies pain CHRONIC LOWER EXTREMITY EDEMA Diuretic held for Hyponatremia of 125 -- discharge plan: reduce Lasix from 40mg to 20mg po daily hold Metolazone for now Fluid Restriction 1500cc/day -- repeat Na on ff up with PCP this Saturday monitor leg edema HYPERTENSION BP stable Metoprolol was decreased due to bradycardia HR has been stable so far Continue metoprolol 25mg URINARY RETENTION Reviewed outpatient chart showed pt has been straight cath twice daily --Urology consulted- Dr. Reyes After discussion with patient, Recommend intermittent straight cath Follow-up as an outpatient with Dr. Reyes ALCOHOL CONSUMPTION Drinks 3-4 beers per day. Alcohol withdrawal protocol ordered. No signs of withdrawal COPD Stable Continue Singulair, Spiriva daily and albuterol inhaler prn VTE PROPHYLAXIS No anticoagulants due to head injury. SCDs. Ambulate. CODE STATUS FULL CODE Consultants: [facility] Disposition d/c home with home health services ff up with PCP on Saturday09/20/17 Consultants: [facility] Current Inpatient Medications: Current Inpatient Medications Medications (Trade) Dose Ordered Sig/Arline Route Start Time Stop Time Status Last Admin Dose Admin Acetaminophen (Tylenol Tab) 650 mg Q4H PRN PO 09/12/17 18:15 10/12/17 18:14 09/18/17 02:56 650 MG Ondansetron HCl (Zofran Inj) 4 mg Q6H PRN IV 09/12/17 18:15 10/12/17 18:14 Nitroglycerin (Nitrostat Tab) 0.4 mg UD PRN SL 09/12/17 18:15 3/17/18 18:14 Polyethylene (Miralax Powder Packet) 17 gm DAILY PRN PO 09/12/17 18:15 10/12/17 18:14 Lorazepam (Ativan Tab) 1 mg ONE PRN PO 09/12/17 18:30 Albuterol (Ventolin Hfa Inhaler) 2 puffs QID PRN INH 09/12/17 18:45 10/12/17 18:44 Cyanocobalamin (Vitamin B-12 Tab) 500 mcg QAM PO 09/13/17 09:00 10/13/17 08:59 09/18/17 09:06 500 MCG Folic Acid (Folvite Tab) 1 mg QAM PO 09/13/17 09:00 10/13/17 08:59 09/18/17 09:06 1 MG Montelukast Sodium (Singulair Tab) 10 mg DAILY PO 09/13/17 09:00 10/13/17 08:59 09/18/17 09:06 10 MG Thiamine HCl (Vitamin B-1 Tab) 100 mg QAM PO 09/13/17 09:00 10/13/17 08:59 09/18/17 09:06 100 MG Metoprolol Tartrate (Lopressor Tab) 25 mg BID PO 09/12/17 21:00 10/12/17 20:59 09/18/17 09:06 25 MG Vancomycin HCl 1500 mg/Sodium Chloride 530 ml @ 200 mls/hr Q24H IV 09/14/17 18:00 09/19/17 23:59 09/18/17 12:20 200 MLS/HR Miscellaneous Information (Consult) 1 ea UD PRN N/A 09/13/17 18:15 10/13/17 18:14 Tiotropium [place] (Spiriva Handihaler Inhaler) 1 puff QAM INH 09/14/17 09:00 10/14/17 08:59 09/18/17 09:06 1 PUFF
[2017-09-18] MEDS ORDERED: FURO-85 PO (14:02)
[2017-09-18] MEDS ORDERED: LPR25 PO (14:02)
--- NOTE | 2017-09-18 14:10 | Discharge Instructions ---
Discharge Instructions Date of Service Sep 18, 2017. Admission Reason for Admission: Fall, Hyponatremia Discharge Discharge Diagnosis / Problem: LOW SODIUM LEVEL, FALLS Discharge Goals Goal(s): Diagnostic testing, Therapeutic intervention Activity Recommendations Activity Limitations: as noted below (NO HEAVY EXERTION UNTIL FOLLOW UP WITH PRIMARY CARE PHYSICIAN, ALWAYS OBSERVE EXTRA CAUTION WITH AMBULATION) Lifting Limitations: until after follow-up appointment Exercise/Sports Limitations: until after follow-up appointment Driving or Machine Use: NO DRIVING UNTIL FOLLOW UP WITH PRIMARY CARE PHYSICIAN . Instructions / Follow-Up Instructions / Follow-Up PLEASE REVIEW YOUR NEW MEDICATION LIST AND FOLLOW INSTRUCTIONS CAREFULLY. OBSERVE FLUID RESTRICTION- NO MORE THAN 1.5 LITER OF FLUIDS IN A DAY. CALL YOUR PRIMARY CARE PHYSICIAN OR RETURN TO THE ER IMMEDIATELY IF WITH WORSENING OF SYMPTOMS, INCREASING LEG SWELLING, SHORTNESS OF BREATH, FEVER/CHILLS, PROBLEMS WITH URINATION, DIARRHEA. FOLLOW UP WITH DR. DSOUZA (ASSOCIATE OF DR. AVALOS) ON Saturday09/20/17 AT 11: 05 AM. YOU WILL HAVE REPEAT BLOOD WORK TO CHECK YOUR SODIUM LEVEL ON THAT DAY. PLEASE MAKE IT TO THE APPOINTMENT. Current Hospital Diet Patient's current hospital diet: AHA Diet (Heart Healthy) Discharge Diet Recommended Diet: AHA Diet (Heart Healthy) Fluid Restriction: 1500 ml (6 cups) Procedures Procedures Performed: CT SCAN OF THE HEAD AND CERVICAL SPINE, XRAY OF THE KNEE, ELBOW, ARM Pending Studies Studies pending at discharge: yes List of pending studies: REPEAT BLOOD WORK C/O PRIMARY CARE PHYSICIAN Medical Emergencies . Who to Call and When: Medical Emergencies: If at any time you feel your situation is an emergency, please call 911 immediately. . Non-Emergent Contact Non-Emergency issues call your: Primary Care Provider Call Non-Emergent contact if: you have a fever, you have any medication questions . . "Provider Documentation" section prepared by Sathish Jimenez. . VTE Core Measure Inpt VTE Proph given/why not?: SCD's
--- NOTE | 2017-09-20 07:25 | Discharge Summary ---
Discharge Summary Date of Service Sep 20, 2017. Discharge Summary Admission Date: Sep 12, 2017 at 18:09 Discharge Date: Sep 18, 2017 Discharge Disposition: Home with services Principal Diagnosis: S/P FALL, WEAKNESS, HYPONATREMIA Secondary Diagnoses/Problems: PLEASE REFER TO HOSPITAL COURSE BELOW. Procedures: HEAD WITHOUT CONTRAST (CT) CT DOSE: HISTORY: Trauma fall, laceration to face TECHNIQUE: Multiaxial CT images of the head were performed without the use of intravenous contrast. A dose lowering technique was utilized adhering to the principles of ALARA. Comparison: None. Findings: The paranasal sinuses and mastoid air cells are clear. The calvarium and skull base are intact. The ventricles and sulci are within normal limits. There is no mass, hematoma, midline shift, or acute infarct. Age-related atrophy and chronic small vessel change Impression: No acute intracranial abnormality. Age-related atrophy and chronic small vessel change. FACIAL BONES-MXILLOFAC WITHOUT CT DOSE: HISTORY: Trauma facial laceration secondary to fall TECHNIQUE: Multiaxial CT images of the maxillofacial region were performed and reformatted in the coronal plane without the use of contrast. A dose lowering technique was utilized adhering to the principles of ALARA. COMPARISON: None. FINDINGS: The visualized cervical spine, skull base, pterygoid plates, nasal bones, lamina papyracea, orbital floors, mandible, and zygomatic arches are intact. No fractures. The orbits are unremarkable. IMPRESSION: No fractures within the maxillofacial region. RIGHT HUMERUS 4 VIEWS HISTORY: Fall onto right arm COMPARISON: None. FINDINGS: No definite fracture or dislocation within the right humerus. Possible elbow effusion. Otherwise, the soft tissues are unremarkable. No radiopaque foreign bodies. IMPRESSION: 1. No fracture or dislocation within the right humerus. 2. Right elbow effusion. This raises the possibility of an occult elbow fracture. Dedicated elbow views is recommended for further evaluation. CERVICAL SPINE W/O CT DOSE: 1095.64 mGy.cm CLINICAL HISTORY: 77 years-old Male with neck pain secondary to fall. Acute neck pain status post fall COMPARISON: CT head and maxillofacial study of same day. TECHNIQUE: Multiple axial CT images of the cervical spine were obtained without contrast. A dose lowering technique was utilized adhering to the principles of ALARA. FINDINGS: There is no acute fracture or subluxation identified within the cervical spine. There is slight kyphotic curvature of the cervical spine centered at the C4-C5 level. Severe intervertebral disc space narrowing is seen at C4-C5, C5-C6 and C6-C7. Multilevel posterior disc osteophyte complex formations are seen in addition to at least mild multilevel facet arthrosis. There is resultant severe left-sided foraminal stenosis at C4-C5 and severe right foraminal narrowing on the right at C5-C6. No definite high-grade central canal narrowing. Bones appear mildly demineralized. Emphysematous changes are seen within the imaged lung apices. Atherosclerosis of the carotid vasculature. No acute intracranial abnormal amount identified. Mastoid air cells and middle ear cavities are clear. IMPRESSION: 1. No acute fracture or subluxation of the cervical spine. 2. Multilevel intervertebral disc space narrowing with posterior disc osteophyte complex formations as above. R ELBOW MIN 3 VIEWS ROUTINE CLINICAL HISTORY: FALL ONTO RT ARM trauma. Pain. COMPARISON: None. DISCUSSION: The bones and joint spaces appear intact. There is no evidence of fracture, dislocation or bony disease. There is no evidence for soft tissue swelling. IMPRESSION: Negative study. RIGHT KNEE 3 VIEWS HISTORY: Right Knee pain/swelling COMPARISON: None. FINDINGS: Small knee effusion. No acute fracture or dislocation. Old, healed proximal fibular fracture. No radiopaque foreign bodies. IMPRESSION: 1. No acute fracture or dislocation within the right knee. 2. Small knee effusion. Consultations: ID, Urology Pending Studies/Follow-Up: Please refer to hospital course below. Medication Reconciliation New Medications: Furosemide (Lasix) 20 Mg Tab 20 MG PO DAILY for 30 Days Metoprolol Tartrate (Lopressor) 25 Mg Tab 25 MG PO BID for 30 Days, #60 TABS 2 Refills Continued Medications: Albuterol Inhaler (Ventolin Inhaler) Aers 2 PUFFS INH QID PRN for Shortness of Breath Cyanocobalamin (Vitamin B12 500MCG) 500 Mcg Tab 500 MCG PO QAM Folic Acid (Folvite) 1 Mg Tab 1 MG PO QAM Home O2 Therapy (Oxygen) Gas 2 LITERS NA HS Montelukast Sodium (Singulair) 10 Mg Tab 1 TAB PO DAILY for 90 Days, #90 TAB 1 Refill Thiamine Hcl (Vitamin B-1) 100 Mg Tab 100 MG PO QAM Tiotropium Boyce (Spiriva Handihaler) 30 Puff/540 Mcg Aerp 1 CAP INH QAM Discontinued Medications: Furosemide (Lasix) 20 Mg Tab 40 MG PO QAM Metolazone (Zaroxolyn) 2.5 Mg Tab 2.5 MG PO DAILY, TAB Metoprolol Tartrate (Lopressor) 50 Mg Tab 50 MG PO BID Admission Information HPI (per Admitting provider): Pt is 77 y/o M with PMH HTN, COPD on 2L O2 HS, squamous and basal cell carcinoma , verrucous carcinoma penis/scrotum, hx elevated PSA, BPH, hx hyponatremia in past requiring sodium tabs presented to ER with c/o fall. Pt states was carrying in case of beer when he went to set the case down on step and felt dizzy and fell forward hitting face and R shoulder. Pt states took him a couple of minutes to get up off the ground. He denies LOC. C/O some pain to R forehead and cheek and had some bleeding from R facial wound. Initially had some discomfort to posterior neck and to R shoulder but states that has since resolved. Pt reports couple of weeks ago fell forward when he was leaning over to look at his lilac collins and felt like he lost his balance. Also reports slipped on ice when getting out of his truck landed on buttocks/back. Denies recurrent dizziness. Pt drinks 2 cups of coffee daily and 3 beers daily. Doesn' t drink any other fluids. Eats one meal a day and snacks on goldfish crackers or peanuts throughout the day. In past pt self-cath and states hasn't done so for greater than one year. He states has sensation of incomplete bladder emptying and frequent urination of small amounts, denies any worsening symptoms. denies dysuria or hematuria. Was on flomax and proscar in past, pt reports hasn't used for over a year. Pt reports hx bilateral LE edema and is on lasix 40mg daily. States had increased edema several months ago and was started on Zaroxolyn 2.5mg daily also. Hx echo in 06/2017: EF: 57%, no diffuse wall abnormality. Denies known hx CHF. Chronic SOB with exertion, denies worsening. Hasn't had to use albuterol inhaler. Denies fever/chills, diaphoresis, N/V/D/C, CAMACHO, vision changes, neck stiffness, orthopnea, palpitations, cough, sore throat , choking, otalgia, rhinorrhea, abdominal pain, paresthesias, rashes. last tetanus 2007 Physical Exam (per Admitting): General Appearance: WD/WN, no apparent distress Head: normocephalic, + pertinent finding (+ecchymosis R superior orbit/ forhead, and R maxillary region. +skin tear with dried blood noted R maxillary region) Eyes: normal inspection, PERRL, EOMI, sclerae normal ENT: hearing grossly normal, pharynx normal, + pertinent finding (mucous membranes moist) Neck: supple, no JVD, trachea midline, + pertinent finding (non-tender to palpation, ROM intact) Respiratory/Chest: chest non-tender, no respiratory distress, no accessory muscle use, + decreased breath sounds (throughout) Cardiovascular: no murmur, + bradycardia Abdomen/GI: normal bowel sounds, non tender, soft Extremities/Musculoskelatal: no calf tenderness, normal capillary refill, + pedal edema (2+pretibial edema), + pertinent finding (ROM intact to upper and lower extremities. R shoulder, arm, elbow non-tender. 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,in the setting of diuretic and possible poor oral intake -- given IV fluids and diuretics held -- Na 125 --> 133--> 134 -- discharge plan: reduce Lasix from 40mg to 20mg po daily hold Metolazone for now Fluid Restriction 1500cc/day -- repeat Na on ff up with PCP this Saturday monitor leg edema HYPOKALEMIA replaced repeat K on ff up this Saturday and regularly POSITIVE BLOOD CULTURE IN 1 BOTTLE - LIKELY CONTAMINANT - repeat blood cultures negative - ID was consulted UTI, STAPHYLOCOCCUS COAG NEG - received IV Vancomycin x 6 days - monitor CKD STAGE 3 Serum creatinine 1.7 on admission creatine improved to 1.3 monitor while on Lasix ABNORMAL TSH TSH mildly elevated Possible related to acute illness Free T4 normal Will need TSH check between 4 to 6 weeks RIGHT KNEE SWELLING/TENDERNESS Mostly related to the Recent fall - xray: no fracture, dislocation no effusion - denies pain CHRONIC LOWER EXTREMITY EDEMA Diuretic held for Hyponatremia of 125 -- discharge plan: reduce Lasix from 40mg to 20mg po daily hold Metolazone for now Fluid Restriction 1500cc/day -- repeat Na on ff up with PCP this Saturday monitor leg edema HYPERTENSION BP stable Metoprolol was decreased due to bradycardia HR has been stable so far metoprolol 25mg monitor HR and BP URINARY RETENTION Reviewed outpatient chart showed pt has been straight cath twice daily --Urology consulted- Dr. Reyes After discussion with patient, Recommend intermittent straight cath Follow-up as an outpatient with Dr. Reyes ALCOHOL CONSUMPTION Drinks 3-4 beers per day. Alcohol withdrawal protocol ordered. No signs of withdrawal COPD Stable Continue Singulair, Spiriva daily and albuterol inhaler prn Disposition d/c home with home health services ff up with PCP on Saturday09/20/17 Total time spent on discharge = This includes examination of the patient, discharge planning, medication reconciliation, and communication with other providers. Discharge Instructions Discharge Instructions Date of Service Sep 18, 2017. Admission Reason for Admission: Fall, Hyponatremia Discharge Discharge Diagnosis / Problem: LOW SODIUM LEVEL, FALLS Discharge Goals Goal(s): Diagnostic testing, Therapeutic intervention Activity Recommendations Activity Limitations: as noted below (NO HEAVY EXERTION UNTIL FOLLOW UP WITH PRIMARY CARE PHYSICIAN, ALWAYS OBSERVE EXTRA CAUTION WITH AMBULATION) Lifting Limitations: until after follow-up appointment Exercise/Sports Limitations: until after follow-up appointment Driving or Machine Use: NO DRIVING UNTIL FOLLOW UP WITH PRIMARY CARE PHYSICIAN . Instructions / Follow-Up Instructions / Follow-Up PLEASE REVIEW YOUR NEW MEDICATION LIST AND FOLLOW INSTRUCTIONS CAREFULLY. OBSERVE FLUID RESTRICTION- NO MORE THAN 1.5 LITER OF FLUIDS IN A DAY. CALL YOUR PRIMARY CARE PHYSICIAN OR RETURN TO THE ER IMMEDIATELY IF WITH WORSENING OF SYMPTOMS, INCREASING LEG SWELLING, SHORTNESS OF BREATH, FEVER/CHILLS, PROBLEMS WITH URINATION, DIARRHEA. FOLLOW UP WITH DR. DSOUZA (ASSOCIATE OF DR. AVALOS) ON Saturday09/20/17 AT 11: 05 AM. YOU WILL HAVE REPEAT BLOOD WORK TO CHECK YOUR SODIUM LEVEL ON THAT DAY. PLEASE MAKE IT TO THE APPOINTMENT. Current Hospital Diet Patient's current hospital diet: AHA Diet (Heart Healthy) Discharge Diet Recommended Diet: AHA Diet (Heart Healthy) Fluid Restriction: 1500 ml (6 cups) Procedures Procedures Performed: CT SCAN OF THE HEAD AND CERVICAL SPINE, XRAY OF THE KNEE, ELBOW, ARM Pending Studies Studies pending at discharge: yes List of pending studies: REPEAT BLOOD WORK C/O PRIMARY CARE PHYSICIAN Medical Emergencies . Who to Call and When: Medical Emergencies: If at any time you feel your situation is an emergency, please call 911 immediately. . Non-Emergent Contact Non-Emergency issues call your: Primary Care Provider Call Non-Emergent contact if: you have a fever, you have any medication questions . . "Provider Documentation" section prepared by Sathish Jimenez. . VTE Core Measure Inpt VTE Proph given/why not?: SCD's
--- NOTE | 2017-09-27 08:18 | EDITING REQUIRED CODING QUERY ---
CODING QUERY To promote full compliance with coding requirements relating to patient care, provider participation is requested in all cases of cpc coder uncertainty. Please assist us with the question(s) below: Coding Question(s): In your clinical opinion is this patient being managed for: ( ) (MRSA) bacteremia, POA ( ) Not Agree ( ) Other explanation of clinical findings (Please Explain) ( ) Unable to determine (Please Define) Physician's Response(s): Positive blood culture not MRSA Thank you Anju Dorman Principal Diagnosis: "_that condition established after study, to be chiefly responsible for occasioning the admission of the patient to the hospital for care." Co-Existing Principal Diagnosis: "_when two or more diagnoses equally meet the criteria for principal diagnosis as determined by the circumstances of admission, diagnostic work up, and/or therapy provided, and the Alphabetic Index, Tabular List, or another coding guideline does not provide sequencing direction, any one of the diagnoses may be sequenced first." "When the physician has documented what appears to be a current diagnosis in the body of the record, but has not included the diagnosis in the final diagnostic statement, the physician should be asked whether the diagnosis should be added." (Source [facility]oding [facility] 2 QTR90. p3-4)
== END 2017-09-18 16:20 | disposition home or self-care (01) | DRG 872 ==
LOC: C.EDB 13:02 → C.2T 18:09 → ENRESERV 18:20
PROVIDERS: ADMIT Hospitalist; ATTEND Internal Medicine
DX: R78.81 Bacteremia (principal); E87.1 Hypo-osmolality and hyponatremia; N39.0 Urinary tract infection, site not specified; R29.6 Repeated falls; J44.9 Chronic obstructive pulmonary disease, unspecified; N40.0 Benign prostatic hyperplasia without lower urinary tract symptoms; I48.91 Unspecified atrial fibrillation; I12.9 Hypertensive chronic kidney disease with stage 1 through stage 4 chronic kidney disease, or unspecified chronic kidney disease; I73.9 Peripheral vascular disease, unspecified; R53.1 Weakness; E87.6 Hypokalemia; N18.3 Chronic kidney disease, stage 3 (moderate); Z66 Do not resuscitate; R60.0 Localized edema; S09.90XA Unspecified injury of head, initial encounter; R00.1 Bradycardia, unspecified; Z99.81 Dependence on supplemental oxygen; Z88.0 Allergy status to penicillin; Z85.828 Personal history of other malignant neoplasm of skin; Z85.49 Personal history of malignant neoplasm of other male genital organs; Z88.6 Allergy status to analgesic agent